=== PATIENT | female | born 1940 | race Caucasian/White ===

== ENCOUNTER → 2017-07-15 | Outpatient (CLI) | payer MEDICARE, MEDICAID ==
--- NOTE | 2017-07-15 12:30 | RADIOLOGY REPORT (SQ) ---
EXAM DESCRIPTION: CHEST PA/LATERAL COMPLETED DATE/TIME: 07/15/2017 11:53 am REASON FOR STUDY: ABNORMAL WEIGHT LOSS COMPARISON: 06/20/2013 EXAM PARAMETERS: NUMBER OF VIEWS: two views TECHNIQUE: Digital Frontal and Lateral radiographic views of the chest acquired. RADIATION DOSE: NA LIMITATIONS: none FINDINGS: LUNGS AND PLEURA: No opacities, masses or pneumothorax. No pleural effusion. MEDIASTINUM AND HILAR STRUCTURES: No masses or contour abnormalities. HEART AND VASCULAR STRUCTURES: Heart size normal. There is a long stent extending from the aortic ar ch to lower abdomen. BONES: No acute findings. HARDWARE: See above. OTHER: No other significant finding. IMPRESSION: No acute cardiopulmonary disease. TECHNICAL DOCUMENTATION: JOB ID: [id number] [employer]- All Rights Reserved
== END ==
LOC: OD 11:34
PROVIDERS: ATTEND Physician Assistant
DX: R63.4 Abnormal weight loss (principal)
CPT/HCPCS: 71020

== ENCOUNTER → 2018-02-20 | Outpatient (CLI) | payer MEDICARE, MEDICAID ==
--- NOTE | 2018-02-20 11:10 | WOMENS IMAGING REPORT ---
EXAM DESCRIPTION: BONE DENSITY HIP/SPINE COMPLETED DATE/TIME: 02/20/2018 10:41 am REASON FOR STUDY: BONE DENSITY HIP/PELVIS/ SPINE/Z78.0 Z78.0 ASYMPTOMATIC MENOPAUSAL STATE COMPARISON: None. TECHNIQUE: Dual-Energy X-ray Absorptiometry (DEXA) of the AP Spine and Hip. LIMITATIONS: None. FINDINGS: Left forearm: The bone mineral density (BMD) measured in the left distal radius and ulna projection correlates with a T-score of -1.6, which is osteopenic as defined by the World Health Organization. HIP: The bone mineral density (BMD) measured in the right hip at the hip correlates with a T-score of -2.3 , which is osteopenic as defined by the World Health Organization. IMPRESSION: 1. Left forearm: Osteopenic 2. HIP: Osteopenic COMMENT: The World Health Organization defines low BMD as follows: T-score: Normal: Greater than -1.0 Osteopenia: Between -1.0 and -2.5 Osteoporosis: Less than -2.5 without fractures Established osteoporosis: Less than -2.5 with fractures In general, you may wish to consider: Diagnosis Treatment Follow-up DEXA Normal BMD Prevention 2-3 years Osteopenia Prevention/Therapy 1-2 years Osteoporosis Therapy Yearly TECHNICAL DOCUMENTATION: JOB ID: [id number] [employer]- All Rights Reserved Reading location - IP/workstation name: [email or web address]
== END ==
LOC: WI 10:18
PROVIDERS: ATTEND Physician Assistant
DX: M85.832 Other specified disorders of bone density and structure, left forearm (principal); M85.88 Other specified disorders of bone density and structure, other site; Z78.0 Asymptomatic menopausal state
CPT/HCPCS: 77080

== ENCOUNTER 2018-07-08 11:34 | Emergency (ER) | payer MEDICARE, MEDICAID ==
[2018-07-08] MEDS ORDERED: ONDANSETRON 4 MG TAB.RAPDIS PO ONE (12:45)
--- NOTE | 2018-07-08 12:49 | ER Document Report ---
ED Medical Screen (RME) - General Chief Complaint: Nausea/Vomiting Stated Complaint: VOMITING Time Seen by Provider: 07/08/18 12:38 Mode of Arrival: Ambulatory Information source: Patient, Relative Notes: 77-year-old female presents to ED for complaint of frequency urgency and burning with urination for 5 days. She states she also has been vomiting every day for the last 5 days about an hour after she takes her morning medicine. States she has not been taking her afternoon medicine because she does not want to vomit again.. She states she has a very decreased appetite. She states she only has one kidney because she has a history of a injury to the left kidney during surgery so they clamped the kidney off and it does not work. She does have a history of high blood pressure cholesterol and arthritis. She is on multiple medications for blood pressure. She is alert and oriented respirations regular and unlabored speaking in full sentences and walks with a even steady gait. She states that she has some suprapubic pain but not abdominal pain. Patient's lungs are clear to auscultation active bowel sounds no tenderness to the abdomen except for in the suprapubic area. I have greeted and performed a rapid initial assessment of this patient. A comprehensive ED assessment and evaluation of the patient, analysis of test results and completion of medical decision making process will be conducted by an additional ED providers. TRAVEL OUTSIDE OF THE [place] IN LAST 30 DAYS: No - Related Data Allergies/Adverse Reactions: Penicillins Allergy (Verified 01/20/14 03:46) Past Medical History - Past Medical History Cardiac Medical History: Reports: Hx Coronary Artery Disease, Hx Heart Attack, Hx Hypercholesterolemia Psychiatric Medical History: Reports: Hx Depression Past Surgical History: Reports: Hx Abdominal Surgery - Aorta surgery, Hx Bowel Surgery - colostomy, Hx Cardiac Catheterization - 5 stents, Hx Hysterectomy, Hx Tonsillectomy - Immunizations Hx Diphtheria, Pertussis, Tetanus Vaccination: Yes Physical Exam - Vital signs Vitals: Temp Pulse Resp BP Pulse Ox 98.4 F 77 16 112/63 96 07/08/18 11:43 07/08/18 11:43 07/08/18 11:43 07/08/18 11:43 07/08/18 11:43 Course - Vital Signs Vital signs: Temp Pulse Resp BP Pulse Ox 98.4 F 77 16 112/63 96 07/08/18 11:43 07/08/18 11:43 07/08/18 11:43 07/08/18 11:43 07/08/18 11:43 Doctor's Discharge - Discharge Referrals: ANNE COVINGTON PA-C [Primary Care Provider] - Follow up as needed
[2018-07-08] MEDS ORDERED: ONDANSETRON 4 MG TAB.RAPDIS ONE (13:02)
[2018-07-08 13:20] LABS: ABSOLUTE BASOPHILS # (AUTO) 0.1 10^3/uL (0.0-0.2); ABSOLUTE EOSINOPHILS # (AUTO) 0.2 10^3/uL (0.0-0.6); ABSOLUTE LYMPHOCYTES (AUTO) 1.6 10^3/uL (0.5-4.7); ABSOLUTE MONOCYTES (AUTO) 0.6 10^3/uL (0.1-1.4); ABSOLUTE NEUT (AUTO) 6.8 10^3/uL (1.7-8.2); BASOPHILS % (AUTO) 0.7 % (0-2); EOSINOPHILS % (AUTO) 2.1 % (0-6); HEMATOCRIT 42.2 % (36.0-47.0); HEMOGLOBIN 13.9 g/dL (12.0-15.5); LYMPHOCYTES % (AUTO) 17.5 % (13-45); MEAN CORPUSCULAR HEMOGLOBIN 28.1 pg (27.0-33.4); MEAN CORPUSCULAR VOLUME 85 fl (80-97); MONOCYTES % (AUTO) 6.1 % (3-13); PLATELET COUNT 194 10^3/uL (150-450); RED BLOOD COUNT 4.95 10^6/uL (3.72-5.28); RED CELL DISTRIBUTION WIDTH 13.4 % (11.5-14.0); SEGMENTED NEUTROPHILS % (AUTO) 73.6 % (42-78); TOTAL CELLS COUNTED % (AUTO) 100 %; WHITE BLOOD COUNT 9.2 10^3/uL (4.0-10.5)
[2018-07-08 13:37] LABS: ALANINE AMINOTRANSFERASE 12 U/L (9-52); ALBUMIN 4.7 g/dL (3.5-5.0); ALKALINE PHOSPHATASE 82 U/L (38-126); ANION GAP 15 (5-19); ASPARTATE AMINO TRANSFERASE 21 U/L (14-36); BILIRUBIN,DIRECT 0.2 mg/dL (0.0-0.4); BILIRUBIN,TOTAL 0.6 mg/dL (0.2-1.3); BLOOD UREA NITROGEN 34 mg/dL (7-20); CALCIUM 11.4 mg/dL (8.4-10.2); CARBON DIOXIDE 26 mmol/L (22-30); CHLORIDE 104 mmol/L (98-107); GLUCOSE 101 mg/dL (75-110); LIPASE 187.6 U/L (23-300); POTASSIUM 4.5 mmol/L (3.6-5.0); SODIUM 144.8 mmol/L (137-145); TOTAL PROTEIN 8.3 g/dL (6.3-8.2)
--- NOTE | 2018-07-08 14:58 | ER Document Report ---
HPI - HPI Time Seen by Provider: 07/08/18 12:38 Pain Level: Denies Notes: Patient is a 77-year-old female who presents to the ED only for blood work to look at her kidney function. Patient states that she has 1 operating kidney currently and had urinary symptoms all of last week which have since improved. Patient states that she also has an episode of vomiting each morning for the last several days after taking her medicine. Patient states that 45 minutes after taking her medicine she will have an episode of vomiting without any hematemesis. Patient states that otherwise she is able to eat and drink without any difficulties. She has no other associated symptoms. Patient states that she has absolutely no pain anywhere. She is able to ambulate without any difficulties. She has no other concerns or complaints at this time. Denies any headache, fever, neck pain, changes in vision/speech/mentation /hearing, URI, sore throat, chest pain, palpitations, syncope, cough, shortness of breath, wheeze, dyspnea, abdominal pain, nausea/vomiting/diarrhea, back pain , numbness/tingling, muscle paralysis/weakness, or rash. - ROS Systems Reviewed and Negative: Yes All other systems reviewed and negative - REPRODUCTIVE Reproductive: DENIES: : - DERM Skin Color: Normal Past Medical History - General Information source: Patient, Relative - Social History Smoking Status: Unknown if Ever Smoked Family History: None Patient has suicidal ideation: No Patient has homicidal ideation: No - Past Medical History Cardiac Medical History: Reports: Hx Coronary Artery Disease, Hx Heart Attack, Hx Hypercholesterolemia Renal/ Medical History: Denies: Hx Peritoneal Dialysis Psychiatric Medical History: Reports: Hx Depression Past Surgical History: Reports: Hx Abdominal Surgery - Aorta surgery, Hx Bowel Surgery - colostomy, Hx Cardiac Catheterization - 5 stents, Hx Hysterectomy, Hx Tonsillectomy - Immunizations Hx Diphtheria, Pertussis, Tetanus Vaccination: Yes Vertical Provider Document - CONSTITUTIONAL Agree With Documented VS: Yes Notes: PHYSICAL EXAMINATION: GENERAL: Well-appearing, well-nourished and in no acute distress. A&Ox4. Answers questions appropriately. HEAD: Atraumatic, normocephalic. EYES: Pupils equal round and reactive to light, extraocular movements intact, sclera anicteric, conjunctiva are normal. ENT: Nares patent and without discharge. oropharynx clear without exudates. No tonsilar hypertrophy or erythema. Moist mucous membranes. NECK: Normal range of motion, supple without lymphadenopathy LUNGS: Breath sounds clear to auscultation bilaterally and equal. No wheezes rales or rhonchi. HEART: Regular rate and rhythm without murmurs, rubs, gallops. ABDOMEN: Soft, nontender, nondistended abdomen. No guarding, no rebound. No masses appreciated. Normal bowel sounds present. No CVA tenderness bilaterally. Musculoskeletal: FROM to passive/active. Strength 5+/5. Extremities: No cyanosis, clubbing, or edema b/l. Peripheral pulses 2+. Capillary refill less than 3 seconds. NEUROLOGICAL: Cranial nerves grossly intact. Normal speech, normal gait. PSYCH: Normal mood, normal affect. SKIN: Warm, Dry, normal turgor, no rashes or lesions noted. - INFECTION CONTROL TRAVEL OUTSIDE OF THE [place] IN LAST 30 DAYS: No Course - Re-evaluation Re-evalutation: 07/08/18 15:57 Patient is an afebrile, well-hydrated M 77-year-old female who presents to the ED with an acute UTI. Vitals are acceptable without any significant tachycardia , tachypnea, or hypoxia. PE is otherwise unremarkable. Patient is nontoxic- appearing and is tolerating p.o. without difficulty. CBC, CMP unremarkable. Creatinine at baseline. See urinalysis results. Urine culture is pending. No further labs or imaging warranted at this time. Patient's abdomen is soft and nontender. Low suspicion for any acute abdomen, sepsis, meningitis, severe dehydration, respiratory compromise, or other systemic emergent condition at this time. Patient is aware that condition can change from initial presentation and she needs to monitor symptoms closely and seek medical attention with any acute changes. I will sent home with a perception for Keflex. Conservative measures otherwise for symptoms. Recheck with your PCM in 2-3 days. Return to the ED with any worsening/concerning symptoms otherwise as reviewed. Patient is in agreement. - Vital Signs Vital signs: Temp Pulse Resp BP Pulse Ox 98.4 F 77 16 112/63 96 07/08/18 11:43 07/08/18 11:43 07/08/18 11:43 07/08/18 11:43 07/08/18 11:43 - Laboratory Result Diagrams: 07/08/18 13:00 07/08/18 13:00 Laboratory results interpreted by me: 07/08/18 13:00 BUN 34 H Creatinine 1.35 H Est GFR ( Amer) 46 L Est GFR (Non-Af Amer) 38 L Calcium 11.4 H Total Protein 8.3 H Discharge - Discharge Clinical Impression: Acute UTI (urinary tract infection) Condition: Stable Disposition: HOME, SELF-CARE Instructions: Cephalexin ([facility]), Urinary Tract Infection ([facility]) Additional Instructions: Push fluids (i.e. water, cranberry juice) Proper hygenic technique Keep the skin clean Tylenol/ibuprofen as needed Take medications as directed F/u with your PCM in 2-3 days for a recheck Consider consult with a Urologist for ongoing/worsening symptoms. Return to the ED with any worsening symptoms and/or development of fever, headache, chest pain, palpitations, syncope, shortness of breath, trouble breathing, abdominal pain, n/v/d, blood in stool/urine, loss of control of bowel /bladder, urinary retention, or other worsening symptoms that are concerning to you. Prescriptions: Cephalexin Monohydrate [Keflex 500 mg Capsule] 500 mg PO BID #14 capsule Referrals: ANNE COVINGTON PA-C [Primary Care Provider] - 07/11/18
[2018-07-08 15:25] LABS: APPEARANCE,URINE TURBID; BILIRUBIN,URINE NEGATIVE (NEGATIVE); GLUCOSE, URINE NEGATIVE (NEGATIVE); KETONES,URINE NEGATIVE (NEGATIVE); LEUKOCYTE ESTERASE,URINE LARGE (NEGATIVE); NITRITE,URINE NEGATIVE (NEGATIVE); PROTEIN,URINE 100 mg/dL (NEGATIVE); URINE SPECIFIC GRAVITY 1.015; UROBILINOGEN,URINE NEGATIVE mg/dL (<2.0)
[2018-07-08 15:28] LABS: COLOR,URINE YELLOW
[2018-07-08 16:17] VITALS: BP 110/68
== END 2018-07-08 16:16 | disposition home or self-care (01) ==
LOC: ER 11:34
DX: N39.0 Urinary tract infection, site not specified (principal); R11.11 Vomiting without nausea; I25.10 Atherosclerotic heart disease of native coronary artery without angina pectoris; Z95.5 Presence of coronary angioplasty implant and graft
CPT/HCPCS: 99283; 51701; 36415; 87086; 83690; 85025; 80053; 81001; A9270; S0119

== ENCOUNTER → 2019-01-15 | Outpatient (CLI) | payer MEDICARE, OTHER ==
[2019-01-15 14:26] LABS: APPEARANCE,URINE SLIGHTLY-CLOUDY; BILIRUBIN,URINE NEGATIVE (NEGATIVE); COLOR,URINE YELLOW; GLUCOSE, URINE NEGATIVE (NEGATIVE); KETONES,URINE NEGATIVE (NEGATIVE); LEUKOCYTE ESTERASE,URINE SMALL (NEGATIVE); NITRITE,URINE NEGATIVE (NEGATIVE); PROTEIN,URINE NEGATIVE (NEGATIVE); URINE SPECIFIC GRAVITY 1.014; UROBILINOGEN,URINE NEGATIVE mg/dL (<2.0)
[2019-01-15 14:35] LABS: ABSOLUTE EOSINOPHILS # (AUTO) 0.1 10^3/uL (0.0-0.6); ABSOLUTE LYMPHOCYTES (AUTO) 1.7 10^3/uL (0.5-4.7); ABSOLUTE MONOCYTES (AUTO) 0.5 10^3/uL (0.1-1.4); ABSOLUTE NEUT (AUTO) 3.9 10^3/uL (1.7-8.2); BASOPHILS % (AUTO) 0.7 % (0-2); EOSINOPHILS % (AUTO) 2.2 % (0-6); HEMATOCRIT 37.7 % (36.0-47.0); HEMOGLOBIN 12.6 g/dL (12.0-15.5); LYMPHOCYTES % (AUTO) 26.9 % (13-45); MEAN CORPUSCULAR HEMOGLOBIN 28.2 pg (27.0-33.4); MEAN CORPUSCULAR HGB CONC 33.4 g/dL (32.0-36.0); MEAN CORPUSCULAR VOLUME 84 fl (80-97); MONOCYTES % (AUTO) 7.4 % (3-13); PLATELET COUNT 149 10^3/uL (150-450); RED BLOOD COUNT 4.47 10^6/uL (3.72-5.28); RED CELL DISTRIBUTION WIDTH 13.8 % (11.5-14.0); SEGMENTED NEUTROPHILS % (AUTO) 62.8 % (42-78); TOTAL CELLS COUNTED % (AUTO) 100 %; WHITE BLOOD COUNT 6.2 10^3/uL (4.0-10.5)
[2019-01-15 14:56] LABS: ALBUMIN 4.7 g/dL (3.5-5.0); ANION GAP 12 (5-19); BLOOD UREA NITROGEN 28 mg/dL (7-20); CALCIUM 10.7 mg/dL (8.4-10.2); CARBON DIOXIDE 26 mmol/L (22-30); CHLORIDE 102 mmol/L (98-107); GLUCOSE 95 mg/dL (75-110); PHOSPHORUS 3.8 mg/dL (2.5-4.5); POTASSIUM 4.8 mmol/L (3.6-5.0); SODIUM 140.1 mmol/L (137-145)
[2019-01-16 12:37] LABS: CREATININE URINE 125.4 mg/dL (Not Estab.); MICROALBUMIN URINE 20.5 ug/mL (Not Estab.)
== END ==
LOC: OD 13:56
PROVIDERS: ATTEND Internal Medicine Nephrology
DX: I12.9 Hypertensive chronic kidney disease with stage 1 through stage 4 chronic kidney disease, or unspecified chronic kidney disease (principal); N18.3 Chronic kidney disease, stage 3 (moderate); E83.52 Hypercalcemia; R80.9 Proteinuria, unspecified
CPT/HCPCS: 36415; 80048; 81001; 82040; 82043; 82306; 82570; 83970; 84100; 85025

== ENCOUNTER 2019-09-06 16:52 | Inpatient (IN) | payer MEDICARE, MEDICAID ==
[2019-09-06 17:38] LABS: ABSOLUTE LYMPHOCYTES (AUTO) 0.6 10^3/uL (0.5-4.7); ABSOLUTE MONOCYTES (AUTO) 0.9 10^3/uL (0.1-1.4); ABSOLUTE NEUT (AUTO) 4.2 10^3/uL (1.7-8.2); BASOPHILS % (AUTO) 0.1 % (0-2); EOSINOPHILS % (AUTO) 0.2 % (0-6); HEMATOCRIT 41.6 % (36.0-47.0); HEMOGLOBIN 13.9 g/dL (12.0-15.5); LYMPHOCYTES % (AUTO) 10.4 % (13-45); MEAN CORPUSCULAR HEMOGLOBIN 28.1 pg (27.0-33.4); MEAN CORPUSCULAR HGB CONC 33.4 g/dL (32.0-36.0); MEAN CORPUSCULAR VOLUME 84 fl (80-97); MONOCYTES % (AUTO) 15.5 % (3-13); PLATELET COUNT 167 10^3/uL (150-450); RED BLOOD COUNT 4.95 10^6/uL (3.72-5.28); RED CELL DISTRIBUTION WIDTH 14.6 % (11.5-14.0); SEGMENTED NEUTROPHILS % (AUTO) 73.8 % (42-78); TOTAL CELLS COUNTED % (AUTO) 100 %; WHITE BLOOD COUNT 5.7 10^3/uL (4.0-10.5)
[2019-09-06 18:05] LABS: ALBUMIN 4.8 g/dL (3.5-5.0); ALKALINE PHOSPHATASE 88 U/L (38-126); ANION GAP 14 (5-19); ASPARTATE AMINO TRANSFERASE 27 U/L (14-36); BILIRUBIN,DIRECT 0.4 mg/dL (0.0-0.4); BILIRUBIN,TOTAL 0.8 mg/dL (0.2-1.3); BLOOD UREA NITROGEN 52 mg/dL (7-20); CALCIUM 11.6 mg/dL (8.4-10.2); CARBON DIOXIDE 30 mmol/L (22-30); CHLORIDE 94 mmol/L (98-107); GLUCOSE 111 mg/dL (75-110); POTASSIUM 4.1 mmol/L (3.6-5.0); TOTAL PROTEIN 8.4 g/dL (6.3-8.2)
[2019-09-06] MEDS ORDERED: ONDANSETRON HCL INJ/PF 4 MG/2 ML SDV IV ONE (20:32)
[2019-09-06] MEDS ORDERED: NORMAL SALINE 1000 ML 1,000 ML IV ONE (20:32)
--- NOTE | 2019-09-06 20:38 | ER Document Report ---
ED General - General Chief Complaint: Nausea/Vomiting Stated Complaint: VOMITING Time Seen by Provider: 09/06/19 20:04 Notes: Patient is an 79-year-old female that comes emergency department by EMS from home for chief complaint of weakness, vomiting, productive cough, and a change in her usual baseline functioning. Patient is telling me that currently she hurts in her upper abdomen. Apparently normally patient is only checked on and cares for self, energetic and ambulating, she has not been out of bed for a couple of days now, she has been intermittently confused as well. No fevers reported. 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 TRAVEL OUTSIDE OF THE [place] IN LAST 30 DAYS: No - Related Data Allergies/Adverse Reactions: Penicillins Allergy (Verified 01/20/14 03:46) Home Medications: Amlodipine, Citalopram, Meclizine, Hydralazine, Plavix, Pantoprazole, Gabapentin, Labeltalol, Clonidine Past Medical History - General Information source: Patient, Relative - Social History Smoking Status: Never Smoker Frequency of alcohol use: None Drug Abuse: None Lives with: Family Family History: None Patient has suicidal ideation: No Patient has homicidal ideation: No - Past Medical History Cardiac Medical History: Reports: Hx Coronary Artery Disease, Hx Heart Attack, Hx Hypercholesterolemia Renal/ Medical History: Denies: Hx Peritoneal Dialysis Psychiatric Medical History: Reports: Hx Depression Past Surgical History: Reports: Hx Abdominal Surgery - Aorta surgery, Hx Bowel Surgery - colostomy, Hx Cardiac Catheterization - 5 stents, Hx Hysterectomy, Hx Tonsillectomy - Immunizations Hx Diphtheria, Pertussis, Tetanus Vaccination: Yes Review of Systems - Review of Systems Constitutional: See HPI EENT: No symptoms reported Cardiovascular: See HPI Respiratory: See HPI Gastrointestinal: See HPI Genitourinary: No symptoms reported Female Genitourinary: No symptoms reported Musculoskeletal: No symptoms reported Skin: No symptoms reported Hematologic/Lymphatic: No symptoms reported Neurological/Psychological: No symptoms reported Physical Exam - Vital signs Vitals: Temp Pulse Resp BP Pulse Ox 97.8 F 81 16 171/81 H 97 09/06/19 17:37 09/06/19 17:37 09/06/19 17:37 09/06/19 17:37 09/06/19 17:37 - Notes Notes: GENERAL: Alert, interacts well. Appears mildly ill and frail HEAD: Normocephalic, atraumatic. EYES: Pupils equal, round, and reactive to light. Extraocular movements intact. ENT: Oral mucosa very dry, tongue midline. Oropharynx unremarkable. Airway patent. LUNGS: Clear to auscultation bilaterally, no wheezes, rales, or rhonchi. No r espiratory distress. HEART: Regular rate and rhythm. No murmur ABDOMEN: There is tenderness in the mid to upper abdomen generally with wincing. Questionable mild distention. There is a ostomy in the left lower abdomen without surrounding tenderness or erythema noted. GENITOURINARY: Deferred EXTREMITIES: Moves all 4 extremities spontaneously. No edema, normal radial and dorsalis pedis pulses bilaterally. No cyanosis. BACK: no cervical, thoracic, lumbar midline tenderness. No saddle anesthesia, normal distal neurovascular exam. Moves all extremities in full range of motion. NEUROLOGICAL: Alert and oriented x3. Normal speech. Cranial nerves II through XII grossly intact. PSYCH: Normal affect, normal mood. SKIN: Slightly pale Course - Re-evaluation Re-evalutation: Patient with tenderness over the upper abdomen, vomiting, mildly ill-appearing. Vital signs unremarkable except for hypertension. Patient does states she feels much improved after some IV fluids. She was given nausea medication. Chest x-ray unremarkable, CBC nonspecific, chemistry nonspecific with baseline creatinine. Lipase unremarkable. Troponin indeterminate. Because of reported intermittent confusion CT of the head was performed and unremarkable. CT of the abdomen and pelvis was performed because of vomiting and upper abdominal pain with history of abdominal surgery and does indicate obstruction. Suspect this is obstructed at the ostomy as opposed to a hernia. Will discuss with surgery. Discussed with patient and son. Discussed with Dr. Montes De Oca, general surgery, he reviewed the images, evaluate the patient, accepted to his service, requested an NG tube be placed. Admitted to the surgical service, patient and son state understanding and agreement. - Vital Signs Vital signs: Temp Pulse Resp BP Pulse Ox 98.1 F 82 16 151/70 H 97 09/07/19 03:15 09/07/19 03:15 09/07/19 03:15 09/07/19 03:15 09/07/19 03:15 - Laboratory Result Diagrams: 09/06/19 17:25 09/06/19 17:25 Laboratory results interpreted by me: 09/06/19 09/06/19 09/06/19 17:25 17:25 22:24 RDW 14.6 H Lymph % (Auto) 10.4 L Sac % (Auto) 15.5 H Chloride 94 L BUN 52 H Creatinine 1.34 H Est GFR ( Amer) 46 L Est GFR (MDRD) Non-Af 38 L Glucose 111 H Calcium 11.6 H Total Protein 8.4 H Urine Protein >=500 H Urine Blood MODERATE H Discharge - Discharge Clinical Impression: Weakness Bowel obstruction Qualifiers: Intestinal obstruction type: unspecified Intestinal obstruction extent: unspecified extent Qualified Code(s): K56.609 - Unspecified intestinal obstruction, unspecified as to partial versus complete obstruction Vomiting Qualifiers: Vomiting type: unspecified Vomiting Intractability: intractable Nausea presence: with nausea Qualified Code(s): R11.2 - Nausea with vomiting, unspecified Abdominal pain Qualifiers: Abdominal location: epigastric Qualified Code(s): R10.13 - Epigastric pain Condition: Stable Disposition: ADMITTED INPATIENT Admitting Provider: Surgicalist Unit Admitted: Surgical Floor
--- NOTE | 2019-09-06 22:02 | RADIOLOGY REPORT (SQ) ---
CT HEAD WITHOUT IV CONTRAST CLINICAL STATEMENT: altered mental status TECHNIQUE: Axial CT images from skull base to vertex without IV contrast. This exam was performed according to our departmental dose optimization program, and includes the following measures where applicable: automated exposure control, adjustment of the mAs and/or kVp according to patient size and/or exam, and an iterative reconstruction algorithm. COMPARISON: Unenhanced CT scan of the brain January 20, 2014 FINDINGS: There is no acute intracranial hemorrhage, mass, mass effect or abnormal extra-axial fluid collection. No evidence of an acute territorial infarct is identified. Ventricles and cisterns are patent. There is mild diffuse global volume loss. Subtle low density is present in the periventricular white matter suggestive of small vessel ischemic change. Volume loss is minimally progressed when compared to the previous exam. Calvaria: The skull base and calvaria demonstrate no abnormality. Paranasal sinuses: Visualized portions of the orbits and paranasal sinuses are unremarkable. skull base: Unremarkable IMPRESSION: 1. No hemorrhage or mass lesion. 2. Age-related volume loss with nonspecific white matter changes suggestive of small vessel ischemic disease.
--- NOTE | 2019-09-06 22:06 | RADIOLOGY REPORT (SQ) ---
EXAM DESCRIPTION: CT ABDOMEN PELVIS WITH IV CONTRAST COMPLETED DATE/TME: 09/06/2019 20:31 CLINICAL HISTORY: 79 years, Female, abd pain, vomiting COMPARISON: None. TECHNIQUE: 377 Images stored on PACS. All CT scanners at this facility use dose modulation, iterative reconstruction, and/or weight based dosing when appropriate to reduce radiation dose to as low as reasonably achievable (ALARA). [facility]: Dose Right [facility]: CareDose [facility]: Dose Right [facility]: Teradose 4D [facility]: [employer] LIMITATIONS: None. FINDINGS: Limited evaluation of the lung bases is unremarkable. Osseous structures are grossly intact. There is aorto biiliac endovascular stent graft, with visible stents also involving the SMA and celiac axis. Left renal artery stent is also suggested. Severe left renal atrophy. Aneurysmal dilatation of the algaaciq abdominal aorta with maximal diameter 5.7 x 5.7 cm. The liver, spleen, adrenal glands, pancreas, right kidney are unremarkable. Gallbladder is present, contracted. Subcentimeter partially exophytic right renal cyst is incidentally noted. Gas and stool in the colon. Left hip prosthesis with streak artifact limiting portions of the pelvis. There is a small amount of free fluid in the pelvis. There are dilated fluid-filled loops of small bowel. Normal appendix. Relative decompression of the colon. Multiple redundant loops of sigmoid colon. Probable transition point in the left lower quadrant, associated with a anterior abdominal wall/pelvic hernia to the left of midline containing a portion of small bowel. This appears to extend to the cutaneous surface and could reflect prior ostomy, correlate with surgical history. No surgical history was provided. Maximal diameter of small bowel is approximately 4.9 cm. No definitive pneumatosis at this time.. IMPRESSION: Small bowel obstruction, as above with probable transition point associated with a hernia of the anterior left hemipelvis abdominal or pelvic wall. Small amount of free fluid. No free air. Relative decompression of colon. Aneurysmal dilatation of the abdominal aorta measuring 5.7 x 5.7 cm. Recommend follow-up as per below. Post surgical changes with endovascular stent graft in place. No free air. Severe left renal atrophy. For management of fusiform aneurysmal abdominal aortas: <2.6 cm aorta, no follow-up is recommended. 2.6-2.9 cm aorta, recommend follow-up every 5 years for aortas meeting the criteria for AAA (>1.5 x proximal normal segment; no f/u if < 1.5 x proximal normal segment; no f/u for aortas < 2.6 cm). 3.0-3.4 cm AAA, recommend follow-up every 3 years. 3.5-3.9 cm AAA, recommend follow-up every 2 years. 4.0-4.4 cm AAA, recommend follow-up every 12 months and recommend vascular consultation. 4.5-5.4 cm AAA, recommend follow-up every 6 months and recommend vascular consultation. >5.5 cm AAA, recommend referral to vascular specialist. For management of saccular abdominal aortic aneurysms of any size, recommend vascular consultation. Note: for AAA enlargement of >0.5 cm in 6 months or >1 cm in 1 year, recommend vascular consultation. References: J Am Donald Radiol 2013; 10(10):789-794; J Vasc Surg. 2018; 67:2-77 TECHNICAL DOCUMENTATION: Quality ID # 436: Final reports with documentation of one or more dose reduction techniques (e.g., Automated exposure control, adjustment of the mA and/or kV according to patient size, use of iterative reconstruction technique) copyright 2011 [employer]- All Rights Reserved
--- NOTE | 2019-09-06 22:12 | RADIOLOGY REPORT (SQ) ---
EXAM DESCRIPTION: XR CHEST 1 VIEW COMPLETED DATE/TME: 09/06/2019 20:30 CLINICAL HISTORY: 79 years, Female, cough, short of breath, weakness COMPARISON: 07/15/2017 chest NUMBER OF VIEWS: 1 TECHNIQUE: Portable chest LIMITATIONS: none FINDINGS: The heart size is normal. Endovascular stent graft of the aorta. The lungs are hyperinflated but clear. No pneumothorax. Graft material in the left axilla. Osteopenia IMPRESSION: No acute cardiopulmonary process copyright 2010 [employer]- All Rights Reserved
[2019-09-06] MEDS ORDERED: FENTANYL CITRATE INJ/PF 100 MCG/2 ML AMPUL IV ONE (22:35)
[2019-09-06] MEDS ORDERED: LIDOCAINE 1% INJ-PF (10 MG/ML) 30 ML SDV NEB ONE (22:35)
[2019-09-06 22:49] LABS: APPEARANCE,URINE CLEAR; BILIRUBIN,URINE NEGATIVE (NEGATIVE); COLOR,URINE YELLOW; GLUCOSE, URINE NEGATIVE (NEGATIVE); KETONES,URINE NEGATIVE (NEGATIVE); LEUKOCYTE ESTERASE,URINE NEGATIVE (NEGATIVE); NITRITE,URINE NEGATIVE (NEGATIVE); PROTEIN,URINE >=500 mg/dL (NEGATIVE); URINE SPECIFIC GRAVITY 1.027; UROBILINOGEN,URINE NEGATIVE mg/dL (<2.0)
[2019-09-06] MEDS ORDERED: DEXTROSE 5%-LACTATED RINGERS 1,000 ML IV PRN (22:56)
[2019-09-06] MEDS ORDERED: PHARMACY COMMUNICATION ORDER MC NR (23:00)
[2019-09-06 23:15] LABS: A TYPE INFLUENZA AG NEGATIVE (NEGATIVE); B INFLUENZA AG NEGATIVE (NEGATIVE)
[2019-09-07] MEDS: METOPROLOL TARTRATE PF/INJ 5 MG/5 ML SDV IV SCH ×2 (05:21→17:26)
--- NOTE | 2019-09-07 06:33 | PDOC H&P ---
History of Present Illness Admission Date/PCP: 09/06/19 23:01 ANNE COVINGTON PA-C Patient complains of: Abdominal pain, nausea, vomiting History of Present Illness: STEPHANIE MILLER is a 79 year old female who by report is very independent. 2 days ago she began having abdominal pain, distention, nausea, and vomiting. Her son reports that he went to visit his mother, and she was in considerable amounts of pain. They called EMS, and the patient was taken to the hospital. She was evaluated in the emergency department and found to have a small bowel obstruction. I was consulted to evaluate the patient. Patient reports sharp and stabbing abdominal pain that radiates throughout the abdomen. She reports multiple episodes of nausea and vomiting. Patient has a descending colostomy, placed at [facility]. The patient is unsure why she has her colostomy. Patient does not wear a colostomy bag. Per her report she allows the stool to collect on tissue paper at home. She reports decreased amounts of stool output from her colostomy over the last 2 days. Currently she denies chest pain, shortness of breath, fevers, chills, dizziness, orthostasis, melena, hematochezia, hematemesis, blurry vision. She does report abdominal pain, nausea, vomiting. Of note, the patient has a history of an aneurysm repair, performed at [facility]. 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 She denies a history of dialysis. 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 Colostomy. Social History Lives with: Family Smoking Status: Never Smoker Frequency of Alcohol Use: None Hx Recreational Drug Use: No Hx Prescription Drug Abuse: No Family History Family History: None Parental Family History Reviewed: Yes Children Family History Reviewed: Yes Sibling(s) Family History Reviewed.: Yes Medication/Allergy Home Medications: Citalopram Hydrobromide [Celexa 10 mg Tablet] 10 mg PO DAILY 06/20/13 Clopidogrel Bisulfate [Plavix 75 mg Tablet] 75 mg PO DAILY 06/20/13 Solifenacin Succinate [Vesicare] 5 mg PO DAILY 06/20/13 Metoprolol Succinate [Toprol Xl 25 mg Tab.sr] 25 mg PO DAILY 01/20/14 Meclizine HCl [Antivert 25 mg Tablet] 25 mg PO TID PRN 04/07/14 Atorvastatin Calcium [Lipitor 40 mg Tablet] 40 mg PO DAILY 06/22/14 Miconazole Nitrate [Monistat 7] 5 gm TOP BID #1 bottle 06/22/14 Cephalexin Monohydrate [Keflex 500 mg Capsule] 500 mg PO BID #14 capsule 07/08/18 Ondansetron [Zofran Odt 4 mg Tablet] 1 - 2 tab PO Q4H PRN #15 tab.rapdis 07/08/18 Allergies/Adverse Reactions: Penicillins Allergy (Verified 01/20/14 03:46) Review of Systems Constitutional: PRESENT: fatigue. ABSENT: fever(s), headache(s) Eyes: ABSENT: visual disturbances Ears: ABSENT: hearing changes Nose, Mouth, and Throat: ABSENT: mouth pain, sore throat Cardiovascular: ABSENT: chest pain Respiratory: ABSENT: cough Gastrointestinal: PRESENT: abdominal pain, bloating, nausea, vomiting. ABSENT: hematemesis, hematochezia, melena Genitourinary: ABSENT: dysuria Musculoskeletal: ABSENT: back pain Integumentary: ABSENT: pruritus, rash Neurological: ABSENT: confusion, convulsions, dizziness Psychiatric: ABSENT: anxiety, depression Endocrine: ABSENT: cold intolerance, heat intolerance Hematologic/Lymphatic: ABSENT: easy bleeding, easy bruising Physical Exam Vital Signs: Temp Pulse Resp BP Pulse Ox 98.1 F 82 16 151/70 H 97 09/07/19 03:15 09/07/19 03:15 09/07/19 03:15 09/07/19 03:15 09/07/19 03:15 Intake & Output 09/05/19 09/06/19 09/07/19 06:59 06:59 06:59 Intake Total 1000 Output Total 700 Balance 300 Weight 51.7 kg General appearance: PRESENT: no acute distress, cooperative Head exam: PRESENT: atraumatic, normocephalic Eye exam: PRESENT: EOMI, PERRLA. ABSENT: scleral icterus Mouth exam: PRESENT: moist, neck supple Neck exam: ABSENT: meningismus, tenderness, thyromegaly, tracheal deviation Respiratory exam: PRESENT: clear to auscultation josefina, unlabored. ABSENT: chest wall tenderness, tachypnea, wheezes Cardiovascular exam: ABSENT: tachycardia Pulses: PRESENT: normal radial pulses Vascular exam: PRESENT: normal capillary refill GI/Abdominal exam: PRESENT: distended, soft, tenderness - Mild abdominal tenderness in all 4 quadrants., other - Left lower quadrant colostomy present. No recent ostomy output.. ABSENT: guarding, rebound, rigid Rectal exam: PRESENT: deferred Extremities exam: ABSENT: clubbing Musculoskeletal exam: ABSENT: deformity Neurological exam: PRESENT: alert, altered, oriented to person, oriented to p lace, oriented to time, oriented to situation, CN II-XII grossly intact Psychiatric exam: ABSENT: agitated, anxious, depressed Focused psych exam: ABSENT: delusional Skin exam: ABSENT: cyanosis, erythema, jaundice Results Laboratory Results: 09/06/19 17:25 09/06/19 17:25 09/06/19 09/06/19 09/06/19 17:25 17:25 17:25 WBC 5.7 RBC 4.95 Hgb 13.9 Hct 41.6 MCV 84 MCH 28.1 MCHC 33.4 RDW 14.6 H Plt Count 167 Seg Neutrophils % 73.8 Sodium 137.8 Potassium 4.1 Chloride 94 L Carbon Dioxide 30 Anion Gap 14 BUN 52 H Creatinine 1.34 H Est GFR ( Amer) 46 L Glucose 111 H Calcium 11.6 H Total Bilirubin 0.8 AST 27 Alkaline Phosphatase 88 Total Protein 8.4 H Albumin 4.8 Lipase 59.8 Urine Color Urine Appearance Urine pH Ur Specific [place] Urine Protein Urine Glucose (UA) Urine Ketones Urine Blood Urine Nitrite Ur Leukocyte Esterase Urine WBC (Auto) Urine RBC (Auto) 09/06/19 22:24 WBC RBC Hgb Hct MCV MCH MCHC RDW Plt Count Seg Neutrophils % Sodium Potassium Chloride Carbon Dioxide Anion Gap BUN Creatinine Est GFR ( Amer) Glucose Calcium Total Bilirubin AST Alkaline Phosphatase Total Protein Albumin Lipase Urine Color YELLOW Urine Appearance CLEAR Urine pH 6.0 Ur Specific [place] 1.027 Urine Protein >=500 H Urine Glucose (UA) NEGATIVE Urine Ketones NEGATIVE Urine Blood MODERATE H Urine Nitrite NEGATIVE Ur Leukocyte Esterase NEGATIVE Urine WBC (Auto) 4 Urine RBC (Auto) 51 09/06/19 17:25 Troponin I 0.024 Impressions: Chest X-Ray 09/06/19 20:30 IMPRESSION: No acute cardiopulmonary process copyright 2011 [employer]- All Rights Reserved Head CT 09/06/19 20:30 IMPRESSION: 1. No hemorrhage or mass lesion. 2. Age-related volume loss with nonspecific white matter changes suggestive of small vessel ischemic disease. Abdomen/Pelvis CT 09/06/19 20:31 IMPRESSION: Small bowel obstruction, as above with probable transition point associated with a hernia of the anterior left hemipelvis abdominal or pelvic wall. Small amount of free fluid. No free air. Relative decompression of colon. Aneurysmal dilatation of the abdominal aorta measuring 5.7 x 5.7 cm. Recommend follow-up as per below. Post surgical changes with endovascular stent graft in place. No free air. Severe left renal atrophy. For management of fusiform aneurysmal abdominal aortas: <2.6 cm aorta, no follow-up is recommended. 2.6-2.9 cm aorta, recommend follow-up every 5 years for aortas meeting the criteria for AAA (>1.5 x proximal normal segment; no f/u if < 1.5 x proximal normal segment; no f/u for aortas < 2.6 cm). 3.0-3.4 cm AAA, recommend follow-up every 3 years. 3.5-3.9 cm AAA, recommend follow-up every 2 years. 4.0-4.4 cm AAA, recommend follow-up every 12 months and recommend vascular consultation. 4.5-5.4 cm AAA, recommend follow-up every 6 months and recommend vascular consultation. >5.5 cm AAA, recommend referral to vascular specialist. For management of saccular abdominal aortic aneurysms of any size, recommend vascular consultation. Note: for AAA enlargement of >0.5 cm in 6 months or >1 cm in 1 year, recommend vascular consultation. References: J Am Donald Radiol 2013; 10(10):789-794; J Vasc Surg. 2018; 67:2-77 TECHNICAL DOCUMENTATION: Quality ID # 436: Final reports with documentation of one or more dose reduction techniques (e.g., Automated exposure control, adjustment of the mA and/or kV according to patient size, use of iterative reconstruction technique) copyright 2010 [employer]- All Rights Reserved Assessment & Plan - Diagnosis (1) Small bowel obstruction due to adhesions Is this a current diagnosis for this admission?: Yes - Plan Summary Plan Summary: This is an 79-year-old female with a small bowel obstruction, very likely due to adhesions. The patient reports decreased colostomy output over the last 2 days, with nausea, vomiting, and abdominal pain. I have reviewed her CT scan (images and reports). Patient has an intra-abdominal transition zone, concerning for small bowel obstruction. I have discussed care with the patient and her son. I have recommended NG decompression, and conservative management. I will have the nurses place a colostomy bag on the patient's colostomy. Hopefully with NG decompression, and conservative management, her symptoms will resolve. If there is no resolution of symptoms and 48 to 72 hours, the patient may require operative intervention. This has been discussed at length with the patient and her son. They are in agreement with the treatment plan. Further recommendations and treatments to be determined based on the patient's clinical course.
[2019-09-07 06:59] LABS: ABSOLUTE EOSINOPHILS # (AUTO) 0.1 10^3/uL (0.0-0.6); ABSOLUTE LYMPHOCYTES (AUTO) 0.6 10^3/uL (0.5-4.7); ABSOLUTE MONOCYTES (AUTO) 0.8 10^3/uL (0.1-1.4); BASOPHILS % (AUTO) 0.1 % (0-2); EOSINOPHILS % (AUTO) 1.7 % (0-6); HEMATOCRIT 39.9 % (36.0-47.0); HEMOGLOBIN 13.5 g/dL (12.0-15.5); LYMPHOCYTES % (AUTO) 13.4 % (13-45); MEAN CORPUSCULAR HEMOGLOBIN 28.2 pg (27.0-33.4); MEAN CORPUSCULAR HGB CONC 33.8 g/dL (32.0-36.0); MEAN CORPUSCULAR VOLUME 84 fl (80-97); MONOCYTES % (AUTO) 17.9 % (3-13); PLATELET COUNT 144 10^3/uL (150-450); RED BLOOD COUNT 4.77 10^6/uL (3.72-5.28); RED CELL DISTRIBUTION WIDTH 14.4 % (11.5-14.0); SEGMENTED NEUTROPHILS % (AUTO) 66.9 % (42-78); TOTAL CELLS COUNTED % (AUTO) 100 %; WHITE BLOOD COUNT 4.5 10^3/uL (4.0-10.5)
[2019-09-07 07:17] LABS: ANION GAP 12 (5-19); BLOOD UREA NITROGEN 41 mg/dL (7-20); CARBON DIOXIDE 27 mmol/L (22-30); CHLORIDE 100 mmol/L (98-107); GLUCOSE 120 mg/dL (75-110); POTASSIUM 3.7 mmol/L (3.6-5.0)
--- NOTE | 2019-09-07 09:02 | RADIOLOGY REPORT (SQ) ---
EXAM DESCRIPTION: KUB/ABDOMEN (SINGLE VIEW) COMPLETED DATE/TIME: 09/07/2019 1:56 am REASON FOR STUDY: Check Placement of NG Tube COMPARISON: CT abdomen and pelvis, 09/06/2019 NUMBER OF VIEWS: One view. TECHNIQUE: Supine radiographic image of the abdomen acquired. LIMITATIONS: None. FINDINGS: BOWEL GAS PATTERN: There are dilated loops of small bowel throughout the abdomen with rela tive paucity of bowel gas in the distal small bowel and colon. CALCIFICATIONS: No suspicious calcifications. SOFT TISSUES: Excreted contrast in the urinary bladder. HARDWARE: Extensive vascular stents. Esophagogastric tube tip projects over the left upper abdomen l ikely in the gastric lumen. The side hole is at the GE junction. BONES: No acute fracture. No worrisome bone lesions. OTHER: No other significant finding. IMPRESSION: 1. Esophagogastric tube tip is likely in the gastric lumen. 2. Small bowel obstruction. TECHNICAL DOCUMENTATION: JOB ID: [id number] [employer]- All Rights Reserved Reading location - IP/workstation name: [email or web address]
--- NOTE | 2019-09-07 10:04 | PDOC PROGRESS REPORT ---
Subjective Progress Note for:: 09/07/19 Reason For Visit: SMALL BOWEL OBSTRUCTION Patient feels better. Nasogastric tube putting out feculent smelling small bowel contents. There is no output in the colostomy bag. Of note patient states she has a colostomy created for diverticular disease she believes over 5 years ago in [facility]. Physical Exam Vital Signs: Temp Pulse Resp BP Pulse Ox 98.1 F 81 18 133/73 H 94 09/07/19 07:39 09/07/19 07:39 09/07/19 07:39 09/07/19 07:39 09/07/19 07:39 Intake & Output 09/06/19 09/07/19 09/08/19 06:59 06:59 06:59 Intake Total 1000 Output Total 850 Balance 150 Weight 51.7 kg General appearance: PRESENT: no acute distress, other - Thick yellow-orange feculent smelling smoke GI/Abdominal exam: PRESENT: other - The abdomen is soft nontender no peritoneal signs no rigidity no distention. Ostomy appliance removed, and lubricated index finger used to visualize the colostomy. There is no evidence of obstruction. The fascial opening is not narrowed. Results Laboratory Results: 09/07/19 06:21 09/07/19 06:21 09/06/19 09/06/19 09/06/19 17:25 17:25 17:25 WBC 5.7 RBC 4.95 Hgb 13.9 Hct 41.6 MCV 84 MCH 28.1 MCHC 33.4 RDW 14.6 H Plt Count 167 Seg Neutrophils % 73.8 Sodium 137.8 Potassium 4.1 Chloride 94 L Carbon Dioxide 30 Anion Gap 14 BUN 52 H Creatinine 1.34 H Est GFR ( Amer) 46 L Glucose 111 H Calcium 11.6 H Total Bilirubin 0.8 AST 27 Alkaline Phosphatase 88 Total Protein 8.4 H Albumin 4.8 Lipase 59.8 Urine Color Urine Appearance Urine pH Ur Specific [place] Urine Protein Urine Glucose (UA) Urine Ketones Urine Blood Urine Nitrite Ur Leukocyte Esterase Urine WBC (Auto) Urine RBC (Auto) 09/06/19 09/07/19 09/07/19 22:24 06:21 06:21 WBC 4.5 RBC 4.77 Hgb 13.5 Hct 39.9 MCV 84 MCH 28.2 MCHC 33.8 RDW 14.4 H Plt Count 144 L Seg Neutrophils % 66.9 Sodium 138.8 Potassium 3.7 Chloride 100 Carbon Dioxide 27 Anion Gap 12 BUN 41 H Creatinine 1.05 Est GFR ( Amer) > 60 Glucose 120 H Calcium 11.0 H Total Bilirubin AST Alkaline Phosphatase Total Protein Albumin Lipase Urine Color YELLOW Urine Appearance CLEAR Urine pH 6.0 Ur Specific [place] 1.027 Urine Protein >=500 H Urine Glucose (UA) NEGATIVE Urine Ketones NEGATIVE Urine Blood MODERATE H Urine Nitrite NEGATIVE Ur Leukocyte Esterase NEGATIVE Urine WBC (Auto) 4 Urine RBC (Auto) 51 09/06/19 17:25 Troponin I 0.024 Impressions: Chest X-Ray 09/06/19 20:30 IMPRESSION: No acute cardiopulmonary process copyright 2010 [employer]- All Rights Reserved Head CT 09/06/19 20:30 IMPRESSION: 1. No hemorrhage or mass lesion. 2. Age-related volume loss with nonspecific white matter changes suggestive of small vessel ischemic disease. Abdomen/Pelvis CT 09/06/19 20:31 IMPRESSION: Small bowel obstruction, as above with probable transition point associated with a hernia of the anterior left hemipelvis abdominal or pelvic wall. Small amount of free fluid. No free air. Relative decompression of colon. Aneurysmal dilatation of the abdominal aorta measuring 5.7 x 5.7 cm. Recommend follow-up as per below. Post surgical changes with endovascular stent graft in place. No free air. Severe left renal atrophy. For management of fusiform aneurysmal abdominal aortas: <2.6 cm aorta, no follow-up is recommended. 2.6-2.9 cm aorta, recommend follow-up every 5 years for aortas meeting the criteria for AAA (>1.5 x proximal normal segment; no f/u if < 1.5 x proximal normal segment; no f/u for aortas < 2.6 cm). 3.0-3.4 cm AAA, recommend follow-up every 3 years. 3.5-3.9 cm AAA, recommend follow-up every 2 years. 4.0-4.4 cm AAA, recommend follow-up every 12 months and recommend vascular consultation. 4.5-5.4 cm AAA, recommend follow-up every 6 months and recommend vascular consultation. >5.5 cm AAA, recommend referral to vascular specialist. For management of saccular abdominal aortic aneurysms of any size, recommend vascular consultation. Note: for AAA enlargement of >0.5 cm in 6 months or >1 cm in 1 year, recommend vascular consultation. References: J Am Donald Radiol 2013; 10(10):789-794; J Vasc Surg. 2018; 67:2-77 TECHNICAL DOCUMENTATION: Quality ID # 436: Final reports with documentation of one or more dose reduction techniques (e.g., Automated exposure control, adjustment of the mA and/or kV according to patient size, use of iterative reconstruction technique) copyright 2011 [employer]- All Rights Reserved KUB X-Ray 09/06/19 22:58 IMPRESSION: 1. Esophagogastric tube tip is likely in the gastric lumen. 2. Small bowel obstruction. Assessment & Plan - Diagnosis (1) Small bowel obstruction due to adhesions Is this a current diagnosis for this admission?: Yes Plan: Impression: Small bowel obstruction clinical presentation, persisting nasogastric tube drainage. No output from diverting colostomy. No evidence of sepsis. Plan: 1. Patient does not have an acute abdomen. She feels a little better, however I am concerned about the feculent nature of the small bowel effluent. 2. We will continue nasogastric decompression, and increase IV fluids. 3. If patient does not open up the next 24 to 48 hours, she may require exploratory laparotomy and this was discussed with her. - Time Time Spent with patient: Less than 15 minutes Medications reviewed and adjusted accordingly: Yes Anticipated discharge: Home
[2019-09-07] MEDS: ONDANSETRON HCL INJ/PF 4 MG/2 ML SDV IV PRN (21:40)
[2019-09-07] MEDS: DEXTROSE 5%-LACTATED RINGERS 1,000 ML IV PRN (23:25)
[2019-09-08] MEDS: METOPROLOL TARTRATE PF/INJ 5 MG/5 ML SDV IV SCH ×3 (02:03→17:01)
[2019-09-08] MEDS: MORPHINE SULFATE 10 MG/ML INJ IV PRN (10:15)
[2019-09-08] MEDS: DEXTROSE 5%-LACTATED RINGERS 1,000 ML IV PRN ×3 (10:16→22:14)
[2019-09-08] MEDS: ONDANSETRON HCL INJ/PF 4 MG/2 ML SDV IV PRN ×2 (10:23→17:13)
--- NOTE | 2019-09-08 20:45 | PDOC PROGRESS REPORT ---
Subjective Progress Note for:: 09/08/19 Subjective:: This is an 79-year-old female admitted with a small bowel obstruction. The patient denies any output or flatus from her colostomy. She denies chest pain, shortness of breath, fevers, chills, nausea, vomiting, dizziness, orthostasis, blurry vision. She still has a high amount of NG tube output. Reason For Visit: SMALL BOWEL OBSTRUCTION Physical Exam Vital Signs: Temp Pulse Resp BP Pulse Ox 97.4 F 53 L 16 144/64 H 95 09/08/19 16:42 09/08/19 19:00 09/08/19 16:42 09/08/19 16:42 09/08/19 16:42 Intake & Output 09/07/19 09/08/19 09/09/19 06:59 06:59 06:59 Intake Total 1000 1000 1000 Output Total 914 535 8838 Balance 150 140 -850 Weight 51.7 kg 52 kg General appearance: PRESENT: no acute distress, cooperative Head exam: PRESENT: atraumatic, normocephalic Eye exam: PRESENT: EOMI, PERRLA. ABSENT: scleral icterus Mouth exam: PRESENT: moist, neck supple Neck exam: ABSENT: meningismus, tenderness, thyromegaly, tracheal deviation Respiratory exam: PRESENT: clear to auscultation josefina, unlabored. ABSENT: chest wall tenderness, tachypnea, wheezes Cardiovascular exam: ABSENT: tachycardia Vascular exam: PRESENT: normal capillary refill GI/Abdominal exam: PRESENT: distended - mild, soft. ABSENT: rebound, rigid, tenderness Rectal exam: PRESENT: deferred Extremities exam: ABSENT: clubbing Neurological exam: PRESENT: alert, awake, oriented to person, oriented to place, oriented to time, oriented to situation, CN II-XII grossly intact. ABSENT: motor sensory deficit Psychiatric exam: ABSENT: agitated, anxious, depressed Focused psych exam: ABSENT: delusional Skin exam: ABSENT: cyanosis, erythema, jaundice Results Laboratory Results: 09/07/19 06:21 09/07/19 06:21 09/06/19 22:24 Catheterized Urine Urine Culture - Final NO GROWTH 2 DAYS 09/06/19 17:25 Troponin I 0.024 Impressions: Chest X-Ray 09/06/19 20:30 IMPRESSION: No acute cardiopulmonary process copyright 2011 [employer]- All Rights Reserved Head CT 09/06/19 20:30 IMPRESSION: 1. No hemorrhage or mass lesion. 2. Age-related volume loss with nonspecific white matter changes suggestive of small vessel ischemic disease. Abdomen/Pelvis CT 09/06/19 20:31 IMPRESSION: Small bowel obstruction, as above with probable transition point associated with a hernia of the anterior left hemipelvis abdominal or pelvic wall. Small amount of free fluid. No free air. Relative decompression of colon. Aneurysmal dilatation of the abdominal aorta measuring 5.7 x 5.7 cm. Recommend follow-up as per below. Post surgical changes with endovascular stent graft in place. No free air. Severe left renal atrophy. For management of fusiform aneurysmal abdominal aortas: <2.6 cm aorta, no follow-up is recommended. 2.6-2.9 cm aorta, recommend follow-up every 5 years for aortas meeting the criteria for AAA (>1.5 x proximal normal segment; no f/u if < 1.5 x proximal normal segment; no f/u for aortas < 2.6 cm). 3.0-3.4 cm AAA, recommend follow-up every 3 years. 3.5-3.9 cm AAA, recommend follow-up every 2 years. 4.0-4.4 cm AAA, recommend follow-up every 12 months and recommend vascular consultation. 4.5-5.4 cm AAA, recommend follow-up every 6 months and recommend vascular consultation. >5.5 cm AAA, recommend referral to vascular specialist. For management of saccular abdominal aortic aneurysms of any size, recommend vascular consultation. Note: for AAA enlargement of >0.5 cm in 6 months or >1 cm in 1 year, recommend vascular consultation. References: J Am Donald Radiol 2013; 10(10):789-794; J Vasc Surg. 2018; 67:2-77 TECHNICAL DOCUMENTATION: Quality ID # 436: Final reports with documentation of one or more dose reduction techniques (e.g., Automated exposure control, adjustment of the mA and/or kV according to patient size, use of iterative reconstruction technique) copyright 2010 [employer]- All Rights Reserved KUB X-Ray 09/06/19 22:58 IMPRESSION: 1. Esophagogastric tube tip is likely in the gastric lumen. 2. Small bowel obstruction. Assessment & Plan - Diagnosis (1) Small bowel obstruction due to adhesions Is this a current diagnosis for this admission?: Yes - Time Time Spent with patient: Less than 15 minutes - Plan Summary Plan Summary: This is an 79-year-old female admitted with a small bowel obstruction. The patient has not had any output from her colostomy. She still has high NG tube output. Plan for repeat x-rays tomorrow with continued NG decompression. If the patient continues to exhibit signs of a bowel obstruction, she may require operative intervention. Further planning to be determined after x-rays and lab work are completed tomorrow.
[2019-09-09] MEDS: METOPROLOL TARTRATE PF/INJ 5 MG/5 ML SDV IV SCH ×3 (01:26→18:17)
[2019-09-09 05:17] LABS: HEMATOCRIT 39.8 % (36.0-47.0); HEMOGLOBIN 13.3 g/dL (12.0-15.5); MEAN CORPUSCULAR HGB CONC 33.3 g/dL (32.0-36.0); MEAN CORPUSCULAR VOLUME 84 fl (80-97); RED BLOOD COUNT 4.74 10^6/uL (3.72-5.28); WHITE BLOOD COUNT 6.3 10^3/uL (4.0-10.5)
[2019-09-09 05:36] LABS: PLATELET COUNT 93 10^3/uL (150-450)
[2019-09-09 05:40] LABS: ABSOLUTE LYMPHOCYTES# (MANUAL) 1.1 10^3/uL (0.5-4.7); ABSOLUTE MONOCYTES # (MANUAL) 0.6 10^3/uL (0.1-1.4); ANION GAP 6 (5-19); BASOPHILS % (MANUAL) 0 % (0-2); BLOOD UREA NITROGEN 25 mg/dL (7-20); CALCIUM 10.6 mg/dL (8.4-10.2); CARBON DIOXIDE 38 mmol/L (22-30); CHLORIDE 99 mmol/L (98-107); EOSINOPHILS % (MANUAL) 4 % (0-6); GLUCOSE 103 mg/dL (75-110); LYMPHOCYTES % (MANUAL) 18 % (13-45); MONOCYTES % (MANUAL) 10 % (3-13); POTASSIUM 3.1 mmol/L (3.6-5.0); SEGMENTED NEUTROPHILS % (MAN) 68 % (42-78); TOTAL CELLS COUNTED 100
[2019-09-09 05:42] LABS: ANISOCYTOSIS SLIGHT; OVALOCYTES 1+; PLATELET COMMENT DECREASED; POIKILOCYTOSIS 1+; TOXIC GRANULATION SLIGHT
[2019-09-09] MEDS: DEXTROSE 5%-LACTATED RINGERS 1,000 ML IV PRN ×2 (06:10→18:17)
--- NOTE | 2019-09-09 08:08 | RADIOLOGY REPORT (SQ) ---
EXAM DESCRIPTION: KUB/ABDOMEN (SINGLE VIEW) COMPLETED DATE/TIME: 09/09/2019 6:38 am REASON FOR STUDY: SBO COMPARISON: CT abdomen pelvis 09/06/2019 KUB 09/07/2019 NUMBER OF VIEWS: One view. TECHNIQUE: Supine radiographic image of the abdomen acquired. LIMITATIONS: None. FINDINGS: BOWEL GAS PATTERN: Persistent marked dilated small bowel loops in the mid abdomen unchange d prior studies. Colon grossly decompressed. Stomach decompressed with a nasogastric tube. CALCIFICATIONS: No suspicious calcifications. SOFT TISSUES: No gross mass or suggestion of organomegaly. HARDWARE: Thoracic and abdominal aortic stent graft with dense along the major visceral vessels. Lef t hip replacement BONES: No acute fracture. No worrisome bone lesions. OTHER: No other significant finding. IMPRESSION: Nasogastric tube decompresses the stomach. Persistent marked dilated small bowel loops in the mid abdomen TECHNICAL DOCUMENTATION: JOB ID: [id number] [employer]- All Rights Reserved Reading location - IP/workstation name: [email or web address]
[2019-09-09] MEDS: ONDANSETRON HCL INJ/PF 4 MG/2 ML SDV IV PRN (09:52)
[2019-09-09] MEDS: MORPHINE SULFATE 10 MG/ML INJ IV PRN (09:52)
--- NOTE | 2019-09-09 11:40 | PDOC PROGRESS REPORT ---
Subjective Progress Note for:: 09/09/19 Subjective:: This is an 79-year-old female admitted with a small bowel obstruction. She reports that she feels "fine". The patient denies any output or flatus from her colostomy. She denies chest pain, shortness of breath, fevers, chills, nausea, vomiting, dizziness, orthostasis, blurry vision. She still has a high amount of NG tube output. Reason For Visit: SMALL BOWEL OBSTRUCTION Physical Exam Vital Signs: Temp Pulse Resp BP Pulse Ox 97.4 F 66 16 157/59 H 96 09/09/19 07:52 09/09/19 07:52 09/09/19 07:52 09/09/19 07:52 09/09/19 07:52 Intake & Output 09/08/19 09/09/19 09/10/19 06:59 06:59 06:59 Intake Total 1000 2929 Output Total 860 2950 Balance 140 -21 Weight 52 kg 52.8 kg Exam: General appearance: PRESENT: no acute distress, cooperative Head exam: PRESENT: atraumatic, normocephalic Eye exam: PRESENT: EOMI, PERRLA. ABSENT: scleral icterus Mouth exam: PRESENT: moist, neck supple Neck exam: ABSENT: meningismus, tenderness, thyromegaly, tracheal deviation Respiratory exam: PRESENT: clear to auscultation josefina, unlabored. ABSENT: chest wall tenderness, tachypnea, wheezes Cardiovascular exam: ABSENT: tachycardia Vascular exam: PRESENT: normal capillary refill GI/Abdominal exam: PRESENT: distended - mild, soft. ABSENT: rebound, rigid, tenderness. No output from ileostomy (air or fluid) Rectal exam: PRESENT: deferred Extremities exam: ABSENT: clubbing Neurological exam: PRESENT: alert, awake, oriented to person, oriented to place, oriented to time, oriented to situation, CN II-XII grossly intact. ABSENT: motor sensory deficit Psychiatric exam: ABSENT: agitated, anxious, depressed Focused psych exam: ABSENT: delusional Skin exam: ABSENT: cyanosis, erythema, jaundice Results Laboratory Results: 09/09/19 04:56 09/09/19 04:56 09/09/19 09/09/19 04:56 04:56 WBC 6.3 RBC 4.74 Hgb 13.3 Hct 39.8 MCV 84 MCH 28.0 MCHC 33.3 RDW 14.0 Plt Count 93 L Seg Neutrophils % Not Reportable Sodium 142.5 Potassium 3.1 L Chloride 99 Carbon Dioxide 38 H Anion Gap 6 BUN 25 H Creatinine 1.02 Est GFR ( Amer) > 60 Glucose 103 Calcium 10.6 H 09/06/19 22:24 Catheterized Urine Urine Culture - Final NO GROWTH 2 DAYS 09/06/19 17:25 Troponin I 0.024 Impressions: Chest X-Ray 09/06/19 20:30 IMPRESSION: No acute cardiopulmonary process copyright 2011 [employer]- All Rights Reserved Head CT 09/06/19 20:30 IMPRESSION: 1. No hemorrhage or mass lesion. 2. Age-related volume loss with nonspecific white matter changes suggestive of small vessel ischemic disease. Abdomen/Pelvis CT 09/06/19 20:31 IMPRESSION: Small bowel obstruction, as above with probable transition point associated with a hernia of the anterior left hemipelvis abdominal or pelvic wall. Small amount of free fluid. No free air. Relative decompression of colon. Aneurysmal dilatation of the abdominal aorta measuring 5.7 x 5.7 cm. Recommend follow-up as per below. Post surgical changes with endovascular stent graft in place. No free air. Severe left renal atrophy. For management of fusiform aneurysmal abdominal aortas: <2.6 cm aorta, no follow-up is recommended. 2.6-2.9 cm aorta, recommend follow-up every 5 years for aortas meeting the criteria for AAA (>1.5 x proximal normal segment; no f/u if < 1.5 x proximal normal segment; no f/u for aortas < 2.6 cm). 3.0-3.4 cm AAA, recommend follow-up every 3 years. 3.5-3.9 cm AAA, recommend follow-up every 2 years. 4.0-4.4 cm AAA, recommend follow-up every 12 months and recommend vascular consultation. 4.5-5.4 cm AAA, recommend follow-up every 6 months and recommend vascular consultation. >5.5 cm AAA, recommend referral to vascular specialist. For management of saccular abdominal aortic aneurysms of any size, recommend vascular consultation. Note: for AAA enlargement of >0.5 cm in 6 months or >1 cm in 1 year, recommend vascular consultation. References: J Am Donald Radiol 2013; 10(10):789-794; J Vasc Surg. 2018; 67:2-77 TECHNICAL DOCUMENTATION: Quality ID # 436: Final reports with documentation of one or more dose reduction techniques (e.g., Automated exposure control, adjustment of the mA and/or kV according to patient size, use of iterative reconstruction technique) copyright 2011 [employer]- All Rights Reserved KUB X-Ray 09/09/19 06:00 IMPRESSION: Nasogastric tube decompresses the stomach. Persistent marked dilated small bowel loops in the mid abdomen Assessment & Plan - Diagnosis (1) Small bowel obstruction due to adhesions Is this a current diagnosis for this admission?: Yes - Time Time Spent with patient: Less than 15 minutes - Plan Summary Plan Summary: This is an 79-year-old female admitted with small bowel obstruction. The patient continues to have symptoms of a small bowel obstruction. I have reviewed her KUB today. There is no improvement whatsoever. She still has distended loops of small bowel. She has no air or liquid coming from her colostomy. Unfortunately, I believe that the patient is failed conservative management of her small bowel obstruction. I have recommended that she undergo exploratory laparotomy with lysis of adhesions. The patient and her son have agreed to this. Risks/benefits discussed, informed consent obtained, and all questions answered.
[2019-09-09] MEDS: POTASSI CL 20 MEQ/50 ML RIDER 20 MEQ/50 ML RTUPB IV SCH ×2 (13:46→16:39)
[2019-09-10] MEDS: METOPROLOL TARTRATE PF/INJ 5 MG/5 ML SDV IV SCH ×3 (01:59→17:19)
[2019-09-10] MEDS: DEXTROSE 5%-LACTATED RINGERS 1,000 ML IV PRN ×2 (02:00→15:51)
[2019-09-10 06:50] LABS: BLOOD UREA NITROGEN 17 mg/dL (7-20); CALCIUM 9.9 mg/dL (8.4-10.2); CARBON DIOXIDE 37 mmol/L (22-30); GLUCOSE 89 mg/dL (75-110); POTASSIUM 3.2 mmol/L (3.6-5.0)
[2019-09-10 06:56] LABS: CHLORIDE 100 mmol/L (98-107)
[2019-09-10 06:58] LABS: ANION GAP 4 (5-19)
[2019-09-10] MEDS ORDERED: PHENYLEPHRINE HCL INJ/PF 10 MG/1 ML SDV ONE (09:39)
[2019-09-10] MEDS ORDERED: GLYCOPYRROLATE 1 MG/5 ML VIAL ONE (09:39)
[2019-09-10] MEDS ORDERED: NEOSTIGMINE METHYLSULFATE 10 MG/10 ML VIAL ONE (09:39)
[2019-09-10] MEDS ORDERED: VECURONIUM BROMIDE INJ 10 MG VIAL IV ONE (09:39)
[2019-09-10] MEDS ORDERED: SUCCINYLCHOLINE CHLORIDE INJ 200 MG/10 ML VIAL ONE (09:39)
--- NOTE | 2019-09-10 10:07 | XCELERA REPORT ---
[address] [address] Transthoracic Echocardiogram Report Name: STEPHANIE MILLER Age: 79 yrs Gender: Female : 1940 Patient Status: Inpatient Patient Location: [address] [place] [address] Study Date: 09/10/2019 08:25 AM Height: 65 in Weight: 116 lb BSA: 1.6 m2 Procedure: A complete two-dimensional transthoracic echocardiogram was performed (2D, M-mode, spectral and color flow Doppler). The study was technically adequate with some images being suboptimal in quality. Reason For Study: CHF Ordering Physician: NICK LAND Performed By: Yamilex Howe Interpretation Summary The left ventricular ejection fraction is normal. There is mild concentric left ventricular hypertrophy. Doppler measurements suggest pseudonormalized left ventricular relaxation, which is associated with grade II/IV or mild to moderate diastolic dysfunction The left ventricle is grossly normal size. Wall motion cannot be accurately commented on, but no definite regional wall motion abnormalities noted. The right ventricular systolic function is normal. The left atrium is mildly dilated. The right atrium is normal in size There is a mild amount of mitral regurgitation There is no mitral valve stenosis. No aortic regurgitation is present. There is no aortic valve stenosis There is a mild amount of tricuspid regurgitation Right ventricular systolic pressure is at the upper limits of normal The aortic root is not well visualized but is probably normal size. The inferior vena cava appeared normal and decreased > 50% with respiration (RAP 5-10 mmHg) Minimal pericardial effusion. MMode/2D Measurements & Calculations RVDd: 2.6 cm LVIDd: 4.3 cm FS: 33.2 % Ao root diam: 2.7 cm IVSd: 0.99 cm LVIDs: 2.8 cm EDV(Teich): 81.0 ml Ao root area: 5.9 cm2 LVPWd: 1.0 cm ESV(Teich): 30.6 ml LA dimension: 3.1 cm EF(Teich): 62.2 % Doppler Measurements & Calculations MV E max brigid: MV P1/2t max brigid: Ao V2 max: LV V1 max P.9 cm/sec 58.6 cm/sec 135.1 cm/sec 3.8 mmHg MV A max brigid: MV P1/2t: 81.0 msec Ao max P.3 mmHg LV V1 max: 89.1 cm/sec MVA(P1/2t): 2.7 cm2 97.2 cm/sec MV E/A: 0.68 MV dec slope: 212.0 cm/sec2 MV dec time: 0.27 sec PA V2 max: TR max brigid: MV P1/2t-pr_phl: 64.8 cm/sec 252.5 cm/sec 81.0 msec PA max PG: TR max P.5 mmHg 1.7 mmHg Left Ventricle The left ventricle is grossly normal size. There is mild concentric left ventricular hypertrophy. The left ventricular ejection fraction is normal. Doppler measurements suggest pseudonormalized left ventricular relaxation, which is associated with grade II/IV or mild to moderate diastolic dysfunction. Wall motion cannot be accurately commented on, but no definite regional wall motion abnormalities noted. Right Ventricle The right ventricle is grossly normal size. There is normal right ventricular wall thickness. The right ventricular systolic function is normal. Atria The right atrium is normal in size. The left atrium is mildly dilated. Interarterial septum not well visualized and not well dopplered. Cannot comment on ASD/PFO presence. Mitral Valve The mitral valve leaflets are sclerotic, but show no functional abnormalities. There is no mitral valve stenosis. There is a mild amount of mitral regurgitation. Aortic Valve The aortic valve is mildly calcified. There is no aortic valve stenosis. No aortic regurgitation is present. Tricuspid Valve The tricuspid valve is not well visualized, but is grossly normal. There is no tricuspid stenosis. There is a mild amount of tricuspid regurgitation. Right ventricular systolic pressure is at the upper limits of normal. Pulmonic Valve The pulmonic valve is not well visualized. Great Vessels The aortic root is not well visualized but is probably normal size. The inferior vena cava appeared normal and decreased > 50% with respiration (RAP 5-10 mmHg). Effusions Minimal pericardial effusion. : NICK LAND Shyamal
[2019-09-10] MEDS: ONDANSETRON HCL INJ/PF 4 MG/2 ML SDV IV PRN (10:28)
[2019-09-10] MEDS ORDERED: DEXAMETHASONE SOD PHOSPHATE INJ 4 MG/1 ML VIAL ONE (10:45)
[2019-09-10] MEDS ORDERED: ONDANSETRON HCL INJ/PF 4 MG/2 ML SDV ONE (10:45)
[2019-09-10] MEDS ORDERED: FENTANYL CITRATE INJ/PF 100 MCG/2 ML AMPUL ONE (10:45)
[2019-09-10] MEDS ORDERED: EPHEDRINE SULFATE INJ 50 MG/1 ML AMPULE ONE (10:45)
[2019-09-10] MEDS ORDERED: MIDAZOLAM 2 MG/2 ML INJ ONE (10:45)
[2019-09-10] MEDS ORDERED: PROPOFOL INJ 200 MG/20 ML VIAL IV ONE (10:45)
--- NOTE | 2019-09-10 10:52 | PDOC PROGRESS REPORT ---
Subjective Progress Note for:: 09/10/19 Subjective:: Reports no gas in her ostomy; still draining from nasogastric tube Reason For Visit: SMALL BOWEL OBSTRUCTION Physical Exam Vital Signs: Temp Pulse Resp BP Pulse Ox 97.3 F 57 L 16 168/70 H 94 09/10/19 03:33 09/10/19 07:00 09/10/19 03:33 09/10/19 03:33 09/10/19 03:33 Intake & Output 09/09/19 09/10/19 09/11/19 06:59 06:59 06:59 Intake Total 2929 2065 Output Total 2950 800 Balance -21 1265 Weight 52.8 kg 52.3 kg General appearance: PRESENT: mild distress GI/Abdominal exam: PRESENT: other - The abdomen is slightly distended, and tender. There is no rigidity. There is no gas or stool in the ostomy bag. Results Laboratory Results: 09/09/19 04:56 09/10/19 06:11 09/09/19 09/10/19 04:56 06:11 Sodium 141.3 Potassium 3.2 L Chloride 100 Carbon Dioxide 37 H Anion Gap 4 L BUN 17 Creatinine 0.86 Est GFR ( Amer) > 60 Glucose 89 Calcium 9.9 Magnesium 2.1 09/06/19 17:25 Troponin I 0.024 Impressions: Chest X-Ray 09/06/19 20:30 IMPRESSION: No acute cardiopulmonary process copyright 2011 [employer]- All Rights Reserved Head CT 09/06/19 20:30 IMPRESSION: 1. No hemorrhage or mass lesion. 2. Age-related volume loss with nonspecific white matter changes suggestive of small vessel ischemic disease. Abdomen/Pelvis CT 09/06/19 20:31 IMPRESSION: Small bowel obstruction, as above with probable transition point associated with a hernia of the anterior left hemipelvis abdominal or pelvic wall. Small amount of free fluid. No free air. Relative decompression of colon. Aneurysmal dilatation of the abdominal aorta measuring 5.7 x 5.7 cm. Recommend follow-up as per below. Post surgical changes with endovascular stent graft in place. No free air. Severe left renal atrophy. For management of fusiform aneurysmal abdominal aortas: <2.6 cm aorta, no follow-up is recommended. 2.6-2.9 cm aorta, recommend follow-up every 5 years for aortas meeting the criteria for AAA (>1.5 x proximal normal segment; no f/u if < 1.5 x proximal normal segment; no f/u for aortas < 2.6 cm). 3.0-3.4 cm AAA, recommend follow-up every 3 years. 3.5-3.9 cm AAA, recommend follow-up every 2 years. 4.0-4.4 cm AAA, recommend follow-up every 12 months and recommend vascular consultation. 4.5-5.4 cm AAA, recommend follow-up every 6 months and recommend vascular consultation. >5.5 cm AAA, recommend referral to vascular specialist. For management of saccular abdominal aortic aneurysms of any size, recommend vascular consultation. Note: for AAA enlargement of >0.5 cm in 6 months or >1 cm in 1 year, recommend vascular consultation. References: J Am Donald Radiol 2013; 10(10):789-794; J Vasc Surg. 2018; 67:2-77 TECHNICAL DOCUMENTATION: Quality ID # 436: Final reports with documentation of one or more dose reduction techniques (e.g., Automated exposure control, adjustment of the mA and/or kV according to patient size, use of iterative reconstruction technique) copyright 2011 [employer]- All Rights Reserved KUB X-Ray 09/09/19 06:00 IMPRESSION: Nasogastric tube decompresses the stomach. Persistent marked dilated small bowel loops in the mid abdomen Assessment & Plan - Diagnosis (1) Small bowel obstruction due to adhesions Is this a current diagnosis for this admission?: Yes Plan: Impression: Patient is failed to form for small bowel obstruction despite IV fluids n.p.o. and nasogastric decompression for several days. Plan: 1. We will proceed with exploratory laparotomy lysis of adhesions and necessary surgery. I discussed this with patient at length, as well as her son who is at bedside. They understand there are cardiovascular respiratory and other risks associated with this undertaking given the patient's multiple comorbidities. We have obtained a echocardiogram, the results are pending at the time of this dictation. 2. Pending duration of operation, and patient's performance, she may require transfer to ICU post procedure. - Time Time Spent with patient: 15-24 minutes Smoking Cessation Education: over 10 minutes Medications reviewed and adjusted accordingly: Yes Anticipated discharge: Home
[2019-09-10] MEDS ORDERED: CLINDAMYCIN PHOSPHATE INJ 300 MG/2 ML SDV ONE (11:36)
[2019-09-10] MEDS ORDERED: DIPHENHYDRAMINE HCL 50 MG/ML VIAL IV PRN (12:47)
[2019-09-10] MEDS ORDERED: PROMETHAZINE HCL INJ 25 MG/1 ML VIAL IV PRN ×2 (12:47)
[2019-09-10] MEDS ORDERED: OXYCODONE-ACETAMINOPHEN 5-325 MG TABLET PO PRN ×2 (12:47)
[2019-09-10] MEDS ORDERED: MORPHINE SULFATE 10 MG/ML INJ IV PRN (12:47)
[2019-09-10] MEDS ORDERED: MEPERIDINE HCL/PF INJ 25 MG/1 ML DISP.SYRIN IV PRN (12:47)
[2019-09-10] MEDS ORDERED: FENTANYL CITRATE INJ/PF 100 MCG/2 ML AMPUL IV PRN ×3 (12:47)
[2019-09-10] MEDS ORDERED: ONDANSETRON HCL INJ/PF 4 MG/2 ML SDV IV PRN (12:47)
--- NOTE | 2019-09-10 13:27 | Operative Report ---
Operative Report DATE OF SURGERY: 09/10/19 PREOPERATIVE DIAGNOSIS: 1. Small bowel obstruction. 2. History of thoracoabd ominal aortic reconstruction. 3. Diverting colostomy POSTOPERATIVE DIAGNOSIS: Same with intra-abdominal adhesions, with dominant lesion obstructing the mid ileum OPERATION: 1. Exploratory laparotomy. 2. Intraoperative lysis of adhesions SURGEON: NATHALIA SIMPSON ANESTHESIA: GA TISSUE REMOVED OR ALTERED: None COMPLICATIONS: None ESTIMATED BLOOD LOSS: Scant INTRAOPERATIVE FINDINGS: See below PROCEDURE: The patient was taken from the preop holding her to the main operating room where general anesthesia was induced by Dr. Ramirez. The arms were abducted, ostomy appliance removed, the abdomen prepped and draped sterile fashion. Surgical plan surgical timeout were conducted. The abdomen was opened the standard midline incision above and below the umbilicus. Of note the patient had previous colon resection, and diverting colostomy. The peritoneal cavity was sharply entered uneventfully. The greater omentum was stuck to the anterior abdominal wall both on the left and right sides of the line. The majority of the omentum was taken off of the anterior abdominal wall to facilitate easy access into the peritoneal cavity. The findings were significant for dilated jejunum, duodenum and stomach. In fact the stomach was massively dilated. Using visual and manual techniques, we were able to immediately identify a dominant, high-grade obstruction caused by a well-developed adhesion going from the mesentery to the posterior lateral pelvic wall above the ostomy. This adhesion was divided electrocautery. The findings were significant for an indentation in the small bowel wall at the level of the serosa, but no evidence of ischemia. The small bowel proximally which consisted primarily of the jejunum was mildly hemorrhagic in areas but quickly pinked up. Of note the proximal small bowel peristalsis and had nice pulses in the arcade. We now proceeded to milk the succus entericus in a retrograde fashion all the way to the stomach. The anesthesia team replaced the nasogastric tube with a clean 18 Cymraes tube. Approximately a liter of material was aspirated successfully from the patient's stomach. We now took down some additional adhesions between the omentum and the intra- abdominal wall. A limited lysis of adhesions of several loops of ileum was undertaken, however we did not lyse all the adhesions down the right lower quadrant as this would put her small bowel at risk. We did run the colon from the cecum, through the right colon transverse colon and descending colon to the ostomy again through some of the adhesions. There was no clinical indication to take down any further adhesions as previously referenced. There is no evidence of tumor in the peritoneal cavity. We could palpate the aortic graft. There was no evidence of expansile masses. At this point felt the operation was complete. Sponge and needle counts are correct. We irrigated the peritoneal cavity check for bleeding there was none. At the site of lysis of adhesions of the small bowel, specifically the ileum, and the right lower quadrant check for any serosal injury and there was none. The abdomen was closed with 2 double-stranded #1 PDS sutures, tying the knot at the level of the umbilicus. Skin was approximated with soledad, and new ostomy appliance installed. Patient tolerated procedure well, extubated, taken to recovery in stable conditi on.
[2019-09-10] MEDS ORDERED: POTASSI CL 20 MEQ/50 ML RIDER 20 MEQ/50 ML RTUPB IV ONE (13:36)
[2019-09-10] MEDS: POTASSIUM CHLORIDE 20 MEQ/50 ML RTU IV SCH ×3 (13:45→21:18)
[2019-09-10] MEDS ORDERED: ACETAMINOPHEN 1,000 MG/100 ML RTUPB IV ONE (14:28)
[2019-09-10] MEDS: CLINDAMYCIN 600 MG/D5W RTU 600 MG/50 ML RTUPB IV SCH (17:18)
[2019-09-10] MEDS: ACETAMINOPHEN 1,000 MG/100 ML RTUPB IV SCH ×2 (17:47→23:14)
[2019-09-10] MEDS ORDERED: ACETAMINOPHEN INJ/PF 1000 MG/100 ML SDV IV SCH (18:00)
[2019-09-10] MEDS: MORPHINE SULFATE 10 MG/ML INJ IV PRN (22:06)
[2019-09-11] MEDS: METOPROLOL TARTRATE PF/INJ 5 MG/5 ML SDV IV SCH ×3 (01:56→17:08)
[2019-09-11] MEDS: CLINDAMYCIN 600 MG/D5W RTU 600 MG/50 ML RTUPB IV SCH ×3 (01:56→17:08)
[2019-09-11] MEDS: ACETAMINOPHEN 1,000 MG/100 ML RTUPB IV SCH ×3 (05:21→17:07)
[2019-09-11] MEDS: DEXTROSE 5%-LACTATED RINGERS 1,000 ML IV PRN ×2 (05:29→14:24)
[2019-09-11 06:40] LABS: ABSOLUTE EOSINOPHILS # (AUTO) 0.1 10^3/uL (0.0-0.6); ABSOLUTE LYMPHOCYTES (AUTO) 1.4 10^3/uL (0.5-4.7); ABSOLUTE MONOCYTES (AUTO) 0.7 10^3/uL (0.1-1.4); ABSOLUTE NEUT (AUTO) 5.9 10^3/uL (1.7-8.2); BASOPHILS % (AUTO) 0.3 % (0-2); HEMATOCRIT 35.2 % (36.0-47.0); MEAN CORPUSCULAR HEMOGLOBIN 28.2 pg (27.0-33.4); MEAN CORPUSCULAR HGB CONC 34.1 g/dL (32.0-36.0); MEAN CORPUSCULAR VOLUME 83 fl (80-97); MONOCYTES % (AUTO) 8.8 % (3-13); RED BLOOD COUNT 4.25 10^6/uL (3.72-5.28); RED CELL DISTRIBUTION WIDTH 13.9 % (11.5-14.0); SEGMENTED NEUTROPHILS % (AUTO) 72.9 % (42-78); TOTAL CELLS COUNTED % (AUTO) 100 %; WHITE BLOOD COUNT 8.1 10^3/uL (4.0-10.5)
[2019-09-11 06:55] LABS: ANION GAP 8 (5-19); BLOOD UREA NITROGEN 20 mg/dL (7-20); CALCIUM 9.1 mg/dL (8.4-10.2); CARBON DIOXIDE 29 mmol/L (22-30); CHLORIDE 101 mmol/L (98-107); GLUCOSE 93 mg/dL (75-110)
[2019-09-11] MEDS: MORPHINE SULFATE 10 MG/ML INJ IV PRN ×3 (07:42→17:08)
[2019-09-11 07:46] LABS: PLATELET COUNT 90 10^3/uL (150-450)
--- NOTE | 2019-09-11 12:17 | PDOC PROGRESS REPORT ---
Subjective Progress Note for:: 09/11/19 Subjective:: Feels okay. Having some mid abdominal pain. Reason For Visit: SMALL BOWEL OBSTRUCTION Physical Exam Vital Signs: Temp Pulse Resp BP Pulse Ox 98.4 F 70 16 136/67 H 95 09/11/19 08:04 09/11/19 08:04 09/11/19 08:04 09/11/19 08:04 09/11/19 08:04 Intake & Output 09/10/19 09/11/19 09/12/19 06:59 06:59 06:59 Intake Total 2065 4419 100 Output Total 800 3065 Balance 1265 1354 100 Weight 52.3 kg 54.2 kg General appearance: PRESENT: no acute distress, cooperative Respiratory exam: PRESENT: clear to auscultation josefina Cardiovascular exam: PRESENT: RRR GI/Abdominal exam: PRESENT: other - Soft, nondistended, appropriate midline abdominal tenderness without peritoneal signs. Results Laboratory Results: 09/11/19 06:06 09/11/19 06:06 09/10/19 09/11/19 09/11/19 11:50 06:06 06:06 WBC 8.1 RBC 4.25 Hgb 12.0 Hct 35.2 L MCV 83 MCH 28.2 MCHC 34.1 RDW 13.9 Plt Count 90 L Seg Neutrophils % 72.9 Sodium 138.0 Potassium 4.0 Chloride 101 Carbon Dioxide 29 Anion Gap 8 BUN 20 Creatinine 0.93 Est GFR ( Amer) > 60 Glucose 93 Calcium 9.1 Blood Type A POSITIVE Antibody Screen NEGATIVE 09/06/19 17:25 Troponin I 0.024 Impressions: Chest X-Ray 09/06/19 20:30 IMPRESSION: No acute cardiopulmonary process copyright 2011 [employer]- All Rights Reserved Head CT 09/06/19 20:30 IMPRESSION: 1. No hemorrhage or mass lesion. 2. Age-related volume loss with nonspecific white matter changes suggestive of small vessel ischemic disease. Abdomen/Pelvis CT 09/06/19 20:31 IMPRESSION: Small bowel obstruction, as above with probable transition point associated with a hernia of the anterior left hemipelvis abdominal or pelvic wall. Small amount of free fluid. No free air. Relative decompression of colon. Aneurysmal dilatation of the abdominal aorta measuring 5.7 x 5.7 cm. Recommend follow-up as per below. Post surgical changes with endovascular stent graft in place. No free air. Severe left renal atrophy. For management of fusiform aneurysmal abdominal aortas: <2.6 cm aorta, no follow-up is recommended. 2.6-2.9 cm aorta, recommend follow-up every 5 years for aortas meeting the criteria for AAA (>1.5 x proximal normal segment; no f/u if < 1.5 x proximal normal segment; no f/u for aortas < 2.6 cm). 3.0-3.4 cm AAA, recommend follow-up every 3 years. 3.5-3.9 cm AAA, recommend follow-up every 2 years. 4.0-4.4 cm AAA, recommend follow-up every 12 months and recommend vascular consultation. 4.5-5.4 cm AAA, recommend follow-up every 6 months and recommend vascular consultation. >5.5 cm AAA, recommend referral to vascular specialist. For management of saccular abdominal aortic aneurysms of any size, recommend vascular consultation. Note: for AAA enlargement of >0.5 cm in 6 months or >1 cm in 1 year, recommend vascular consultation. References: J Am Donald Radiol 2013; 10(10):789-794; J Vasc Surg. 2018; 67:2-77 TECHNICAL DOCUMENTATION: Quality ID # 436: Final reports with documentation of one or more dose reduction techniques (e.g., Automated exposure control, adjustment of the mA and/or kV according to patient size, use of iterative reconstruction technique) copyright 2011 [employer]- All Rights Reserved KUB X-Ray 09/09/19 06:00 IMPRESSION: Nasogastric tube decompresses the stomach. Persistent marked dilated small bowel loops in the mid abdomen Assessment & Plan - Diagnosis (1) Small bowel obstruction due to adhesions Is this a current diagnosis for this admission?: Yes Plan: Status post lysis of adhesion. Looks good postoperatively. Will likely DC NG tube tomorrow. DC Maria and ambulate patient today. - Time Time Spent with patient: Less than 15 minutes
[2019-09-11] MEDS: ONDANSETRON HCL INJ/PF 4 MG/2 ML SDV IV PRN (13:21)
[2019-09-12] MEDS: ACETAMINOPHEN 1,000 MG/100 ML RTUPB IV SCH ×5 (00:56→23:28)
[2019-09-12] MEDS: CLINDAMYCIN 600 MG/D5W RTU 600 MG/50 ML RTUPB IV SCH ×3 (02:32→18:10)
[2019-09-12] MEDS: METOPROLOL TARTRATE PF/INJ 5 MG/5 ML SDV IV SCH ×3 (03:41→18:11)
[2019-09-12] MEDS: DEXTROSE 5%-LACTATED RINGERS 1,000 ML IV PRN ×3 (06:39→21:39)
--- NOTE | 2019-09-12 10:01 | PDOC PROGRESS REPORT ---
Subjective Progress Note for:: 09/12/19 Reason For Visit: SMALL BOWEL OBSTRUCTION Physical Exam Vital Signs: Temp Pulse Resp BP Pulse Ox 98.5 F 75 18 149/68 H 94 09/12/19 08:17 09/12/19 08:17 09/12/19 06:57 09/12/19 08:17 09/12/19 08:17 Intake & Output 09/11/19 09/12/19 09/13/19 06:59 06:59 06:59 Intake Total 4419 2650 Output Total 3065 400 Balance 1354 2250 Weight 54.2 kg 53.1 kg Results Laboratory Results: 09/11/19 06:06 09/11/19 06:06 09/06/19 17:25 Troponin I 0.024 Impressions: Chest X-Ray 09/06/19 20:30 IMPRESSION: No acute cardiopulmonary process copyright 2011 [employer]- All Rights Reserved Head CT 09/06/19 20:30 IMPRESSION: 1. No hemorrhage or mass lesion. 2. Age-related volume loss with nonspecific white matter changes suggestive of small vessel ischemic disease. Abdomen/Pelvis CT 09/06/19 20:31 IMPRESSION: Small bowel obstruction, as above with probable transition point associated with a hernia of the anterior left hemipelvis abdominal or pelvic wall. Small amount of free fluid. No free air. Relative decompression of colon. Aneurysmal dilatation of the abdominal aorta measuring 5.7 x 5.7 cm. Recommend follow-up as per below. Post surgical changes with endovascular stent graft in place. No free air. Severe left renal atrophy. For management of fusiform aneurysmal abdominal aortas: <2.6 cm aorta, no follow-up is recommended. 2.6-2.9 cm aorta, recommend follow-up every 5 years for aortas meeting the criteria for AAA (>1.5 x proximal normal segment; no f/u if < 1.5 x proximal normal segment; no f/u for aortas < 2.6 cm). 3.0-3.4 cm AAA, recommend follow-up every 3 years. 3.5-3.9 cm AAA, recommend follow-up every 2 years. 4.0-4.4 cm AAA, recommend follow-up every 12 months and recommend vascular consultation. 4.5-5.4 cm AAA, recommend follow-up every 6 months and recommend vascular consultation. >5.5 cm AAA, recommend referral to vascular specialist. For management of saccular abdominal aortic aneurysms of any size, recommend vascular consultation. Note: for AAA enlargement of >0.5 cm in 6 months or >1 cm in 1 year, recommend vascular consultation. References: J Am Donald Radiol 2013; 10(10):789-794; J Vasc Surg. 2018; 67:2-77 TECHNICAL DOCUMENTATION: Quality ID # 436: Final reports with documentation of one or more dose reduction techniques (e.g., Automated exposure control, adjustment of the mA and/or kV according to patient size, use of iterative reconstruction technique) copyright 2011 [employer]- All Rights Reserved KUB X-Ray 09/09/19 06:00 IMPRESSION: Nasogastric tube decompresses the stomach. Persistent marked dilated small bowel loops in the mid abdomen Assessment & Plan - Diagnosis (1) Small bowel obstruction due to adhesions Is this a current diagnosis for this admission?: Yes - Time Time Spent with patient: Less than 15 minutes - Plan Summary Plan Summary: This is an 79-year-old female status post exploratory laparotomy for a bowel obstruction. She underwent lysis of adhesions. She is now postoperative day #2. The patient still has not had any flatus or stool per her left lower quadrant colostomy. She denies abdominal distention, nausea, or vomiting. She still has an NG tube in place. I will order a KUB x-ray today to image her bowel gas pattern. Her electrolytes are within normal limits. Continue NG tube until there is evidence of bowel function. Her midline wound appears clean, dry, and intact.
[2019-09-12 12:00] LABS: ANION GAP 5 (5-19); BLOOD UREA NITROGEN 18 mg/dL (7-20); CALCIUM 8.9 mg/dL (8.4-10.2); CARBON DIOXIDE 31 mmol/L (22-30); CHLORIDE 100 mmol/L (98-107); GLUCOSE 93 mg/dL (75-110); POTASSIUM 3.8 mmol/L (3.6-5.0)
[2019-09-12] MEDS: MORPHINE SULFATE 10 MG/ML INJ IV PRN ×2 (13:09→20:10)
--- NOTE | 2019-09-12 16:35 | RADIOLOGY REPORT (SQ) ---
EXAM DESCRIPTION: KUB/ABDOMEN (SINGLE VIEW) COMPLETED DATE/TIME: 09/12/2019 4:04 pm REASON FOR STUDY: SBO COMPARISON: 09/09/2019 NUMBER OF VIEWS: One view. TECHNIQUE: Supine radiographic image of the abdomen acquired. LIMITATIONS: None. FINDINGS: BOWEL GAS PATTERN: There are some gas-filled loops of small and large bowel. No significa ntly dilated loops are seen. CALCIFICATIONS: No suspicious calcifications. SOFT TISSUES: No gross mass or suggestion of organomegaly. HARDWARE: Aortoiliac stent grafts with stents apparently involving the renal arteries and the SMA. A n NG tube extends into the stomach. BONES: No acute fracture. No worrisome bone lesions. OTHER: No other significant finding. IMPRESSION: NO RADIOGRAPHIC EVIDENCE FOR ACUTE ABDOMINAL DISEASE. TECHNICAL DOCUMENTATION: JOB ID: [id number] [employer]- All Rights Reserved Reading location - IP/workstation name: [email or web address]
[2019-09-13] MEDS: CLINDAMYCIN 600 MG/D5W RTU 600 MG/50 ML RTUPB IV SCH ×3 (01:50→17:21)
[2019-09-13] MEDS: METOPROLOL TARTRATE PF/INJ 5 MG/5 ML SDV IV SCH ×3 (02:33→17:21)
[2019-09-13] MEDS: DEXTROSE 5%-LACTATED RINGERS 1,000 ML IV PRN (04:20)
[2019-09-13 06:04] LABS: ANION GAP 6 (5-19); BLOOD UREA NITROGEN 15 mg/dL (7-20); CARBON DIOXIDE 33 mmol/L (22-30); CHLORIDE 98 mmol/L (98-107); GLUCOSE 104 mg/dL (75-110); POTASSIUM 3.4 mmol/L (3.6-5.0)
[2019-09-13] MEDS: ACETAMINOPHEN 1,000 MG/100 ML RTUPB IV SCH ×2 (06:19→13:02)
[2019-09-13] MEDS ORDERED: 1/2 NORMAL SALINE IV PRN ×2 (08:30)
[2019-09-13] MEDS ORDERED: DEXTROSE 5% IV PRN ×2 (08:30)
[2019-09-13] MEDS ORDERED: POTASSIUM CHLORIDE IV PRN ×2 (08:30)
[2019-09-13] MEDS ORDERED: POTASSI CL 20 MEQ/50 ML RIDER 20 MEQ/50 ML RTUPB IV ONE (08:33)
--- NOTE | 2019-09-13 08:33 | PDOC PROGRESS REPORT ---
Subjective Progress Note for:: 09/13/19 Subjective:: No complaints. Reason For Visit: SMALL BOWEL OBSTRUCTION Physical Exam Vital Signs: Temp Pulse Resp BP Pulse Ox 98.4 F 65 18 131/52 H 96 09/13/19 06:57 09/13/19 07:00 09/13/19 06:57 09/13/19 06:57 09/13/19 06:57 Intake & Output 09/12/19 09/13/19 09/14/19 06:59 06:59 06:59 Intake Total 2650 3058 Output Total 400 575 Balance 2250 2483 Weight 53.1 kg 55.2 kg General appearance: PRESENT: no acute distress, cooperative Respiratory exam: PRESENT: clear to auscultation josefina Cardiovascular exam: PRESENT: RRR GI/Abdominal exam: PRESENT: other - Soft, nondistended, minimal tenderness. Ostomy is pink but it has no output and no air in the bag. NG output is bile tinged. Results Laboratory Results: 09/11/19 06:06 09/13/19 05:17 09/12/19 09/13/19 11:21 05:17 Sodium 136.1 L 137.2 Potassium 3.8 3.4 L Chloride 100 98 Carbon Dioxide 31 H 33 H Anion Gap 5 6 BUN 18 15 Creatinine 0.89 0.92 Est GFR ( Amer) > 60 > 60 Glucose 93 104 Calcium 8.9 9.0 09/06/19 17:25 Troponin I 0.024 Impressions: Chest X-Ray 09/06/19 20:30 IMPRESSION: No acute cardiopulmonary process copyright 2011 [employer]- All Rights Reserved Head CT 09/06/19 20:30 IMPRESSION: 1. No hemorrhage or mass lesion. 2. Age-related volume loss with nonspecific white matter changes suggestive of small vessel ischemic disease. Abdomen/Pelvis CT 09/06/19 20:31 IMPRESSION: Small bowel obstruction, as above with probable transition point associated with a hernia of the anterior left hemipelvis abdominal or pelvic wall. Small amount of free fluid. No free air. Relative decompression of colon. Aneurysmal dilatation of the abdominal aorta measuring 5.7 x 5.7 cm. Recommend follow-up as per below. Post surgical changes with endovascular stent graft in place. No free air. Severe left renal atrophy. For management of fusiform aneurysmal abdominal aortas: <2.6 cm aorta, no follow-up is recommended. 2.6-2.9 cm aorta, recommend follow-up every 5 years for aortas meeting the criteria for AAA (>1.5 x proximal normal segment; no f/u if < 1.5 x proximal normal segment; no f/u for aortas < 2.6 cm). 3.0-3.4 cm AAA, recommend follow-up every 3 years. 3.5-3.9 cm AAA, recommend follow-up every 2 years. 4.0-4.4 cm AAA, recommend follow-up every 12 months and recommend vascular consultation. 4.5-5.4 cm AAA, recommend follow-up every 6 months and recommend vascular consultation. >5.5 cm AAA, recommend referral to vascular specialist. For management of saccular abdominal aortic aneurysms of any size, recommend vascular consultation. Note: for AAA enlargement of >0.5 cm in 6 months or >1 cm in 1 year, recommend vascular consultation. References: J Am Donald Radiol 2013; 10(10):789-794; J Vasc Surg. 2018; 67:2-77 TECHNICAL DOCUMENTATION: Quality ID # 436: Final reports with documentation of one or more dose reduction techniques (e.g., Automated exposure control, adjustment of the mA and/or kV according to patient size, use of iterative reconstruction technique) copyright 2011 [employer]- All Rights Reserved KUB X-Ray 09/12/19 09:57 IMPRESSION: NO RADIOGRAPHIC EVIDENCE FOR ACUTE ABDOMINAL DISEASE. Assessment & Plan - Diagnosis (1) Small bowel obstruction due to adhesions Is this a current diagnosis for this admission?: Yes Plan: Status post lysis of adhesions. Still has an ileus. Keep NG tube. Continue IV fluids and encourage ambulation. Replace potassium. - Time Time Spent with patient: Less than 15 minutes
[2019-09-13] MEDS: MORPHINE SULFATE 10 MG/ML INJ IV PRN ×3 (09:06→20:56)
[2019-09-13] MEDS: POTASSI CL 20 MEQ/D5-1/2NS 1L 1000 ML IV PRN (14:40)
[2019-09-14] MEDS: METOPROLOL TARTRATE PF/INJ 5 MG/5 ML SDV IV SCH ×3 (01:08→17:31)
[2019-09-14] MEDS: CLINDAMYCIN 600 MG/D5W RTU 600 MG/50 ML RTUPB IV SCH ×3 (01:08→17:31)
[2019-09-14] MEDS: MORPHINE SULFATE 10 MG/ML INJ IV PRN ×3 (03:19→22:24)
[2019-09-14] MEDS: POTASSI CL 20 MEQ/D5-1/2NS 1L 1000 ML IV PRN ×2 (05:24→17:30)
[2019-09-14 05:55] LABS: ANION GAP 9 (5-19); BLOOD UREA NITROGEN 10 mg/dL (7-20); CALCIUM 8.8 mg/dL (8.4-10.2); CARBON DIOXIDE 27 mmol/L (22-30); CHLORIDE 99 mmol/L (98-107); GLUCOSE 103 mg/dL (75-110); POTASSIUM 3.4 mmol/L (3.6-5.0)
[2019-09-14 07:13] LABS: HEMATOCRIT 31.7 % (36.0-47.0); HEMOGLOBIN 10.7 g/dL (12.0-15.5); MEAN CORPUSCULAR HEMOGLOBIN 27.9 pg (27.0-33.4); MEAN CORPUSCULAR HGB CONC 33.7 g/dL (32.0-36.0); MEAN CORPUSCULAR VOLUME 83 fl (80-97); RED BLOOD COUNT 3.83 10^6/uL (3.72-5.28); RED CELL DISTRIBUTION WIDTH 14.4 % (11.5-14.0)
[2019-09-14 07:17] LABS: PLATELET COUNT 99 10^3/uL (150-450); WHITE BLOOD COUNT 18.6 10^3/uL (4.0-10.5)
[2019-09-14 07:19] LABS: ABSOLUTE LYMPHOCYTES# (MANUAL) 0.7 10^3/uL (0.5-4.7); ABSOLUTE MONOCYTES # (MANUAL) 0.4 10^3/uL (0.1-1.4); BAND NEUTROPHILS % (MANUAL) 4 % (3-5); BASOPHILS % (MANUAL) 0 % (0-2); EOSINOPHILS % (MANUAL) 2 % (0-6); LYMPHOCYTES % (MANUAL) 3 % (13-45); METAMYELOCYTES % (MANUAL) 1 % (0-1); MONOCYTES % (MANUAL) 2 % (3-13); SEGMENTED NEUTROPHILS % (MAN) 86 % (42-78); TOTAL CELLS COUNTED 100
[2019-09-14 07:20] LABS: POLYCHROMASIA SLIGHT
[2019-09-14 07:21] LABS: ANISOCYTOSIS SLIGHT; OVALOCYTES 1+; POIKILOCYTOSIS SLIGHT
[2019-09-14 07:23] LABS: MYELOCYTES % (MANUAL) 1 % (0); PLATELET COMMENT DECREASED
--- NOTE | 2019-09-14 09:17 | PDOC PROGRESS REPORT ---
Subjective Progress Note for:: 09/14/19 Subjective:: no complaints still no flatus via stoma Reason For Visit: SMALL BOWEL OBSTRUCTION Physical Exam Vital Signs: Temp Pulse Resp BP Pulse Ox 98.4 F 74 17 134/60 H 95 09/14/19 08:36 09/14/19 08:36 09/14/19 08:36 09/14/19 08:36 09/14/19 08:36 Intake & Output 09/13/19 09/14/19 09/15/19 06:59 06:59 06:59 Intake Total 3058 2300 Output Total 575 1150 Balance 2483 1150 Weight 55.2 kg 48.5 kg General appearance: PRESENT: mild distress Head exam: PRESENT: normocephalic Eye exam: PRESENT: EOMI Ear exam: PRESENT: normal external ear exam Mouth exam: PRESENT: moist Neck exam: PRESENT: full ROM Respiratory exam: PRESENT: clear to auscultation josefina Cardiovascular exam: PRESENT: RRR Pulses: PRESENT: normal radial pulses, normal femoral pulses Vascular exam: PRESENT: normal capillary refill GI/Abdominal exam: PRESENT: hypoactive bowel sounds, soft Rectal exam: PRESENT: deferred Extremities exam: PRESENT: full ROM Musculoskeletal exam: PRESENT: full ROM Neurological exam: PRESENT: alert, awake, oriented to person, oriented to place Psychiatric exam: PRESENT: appropriate affect Skin exam: PRESENT: dry Results Laboratory Results: 09/14/19 04:49 09/14/19 04:49 09/14/19 09/14/19 04:49 04:49 WBC 18.6 H D RBC 3.83 Hgb 10.7 L Hct 31.7 L MCV 83 MCH 27.9 MCHC 33.7 RDW 14.4 H Plt Count 99 L Seg Neutrophils % Not Reportable Sodium 134.7 L Potassium 3.4 L Chloride 99 Carbon Dioxide 27 Anion Gap 9 BUN 10 Creatinine 0.84 Est GFR ( Amer) > 60 Glucose 103 Calcium 8.8 09/06/19 17:25 Troponin I 0.024 Impressions: Chest X-Ray 09/06/19 20:30 IMPRESSION: No acute cardiopulmonary process copyright 2011 [employer]- All Rights Reserved Head CT 09/06/19 20:30 IMPRESSION: 1. No hemorrhage or mass lesion. 2. Age-related volume loss with nonspecific white matter changes suggestive of small vessel ischemic disease. Abdomen/Pelvis CT 09/06/19 20:31 IMPRESSION: Small bowel obstruction, as above with probable transition point associated with a hernia of the anterior left hemipelvis abdominal or pelvic wall. Small amount of free fluid. No free air. Relative decompression of colon. Aneurysmal dilatation of the abdominal aorta measuring 5.7 x 5.7 cm. Recommend follow-up as per below. Post surgical changes with endovascular stent graft in place. No free air. Severe left renal atrophy. For management of fusiform aneurysmal abdominal aortas: <2.6 cm aorta, no follow-up is recommended. 2.6-2.9 cm aorta, recommend follow-up every 5 years for aortas meeting the criteria for AAA (>1.5 x proximal normal segment; no f/u if < 1.5 x proximal normal segment; no f/u for aortas < 2.6 cm). 3.0-3.4 cm AAA, recommend follow-up every 3 years. 3.5-3.9 cm AAA, recommend follow-up every 2 years. 4.0-4.4 cm AAA, recommend follow-up every 12 months and recommend vascular consultation. 4.5-5.4 cm AAA, recommend follow-up every 6 months and recommend vascular consultation. >5.5 cm AAA, recommend referral to vascular specialist. For management of saccular abdominal aortic aneurysms of any size, recommend vascular consultation. Note: for AAA enlargement of >0.5 cm in 6 months or >1 cm in 1 year, recommend vascular consultation. References: J Am Donald Radiol 2013; 10(10):789-794; J Vasc Surg. 2018; 67:2-77 TECHNICAL DOCUMENTATION: Quality ID # 436: Final reports with documentation of one or more dose reduction techniques (e.g., Automated exposure control, adjustment of the mA and/or kV according to patient size, use of iterative reconstruction technique) copyright 2011 [employer]- All Rights Reserved Assessment & Plan - Diagnosis (1) Bowel obstruction Qualifiers: Intestinal obstruction type: unspecified Intestinal obstruction extent: unspecified extent Qualified Code(s): K56.609 - Unspecified intestinal obstruction, unspecified as to partial versus complete obstruction Is this a current diagnosis for this admission?: Yes - Time Time Spent with patient: 25-34 minutes - Plan Summary Plan Summary: s/p lysis of adhesions still with ileus kub yesterday showed dilated sb iwth decompressed colon this am abd soft with hypoactive bs. ng in place, bilous plan check kub today, cont ng if sb less dilated will order sbft.
--- NOTE | 2019-09-14 09:23 | Progress Note ---
Provider Note Provider Note: Review of patient's KUB this morning shows air in the colon and no significant small bowel dilatation. We will order a small bowel series today as she has not had any flatus or return of bowel function since her procedure.
--- NOTE | 2019-09-14 10:18 | RADIOLOGY REPORT (SQ) ---
EXAM DESCRIPTION: KUB/ABDOMEN (SINGLE VIEW) COMPLETED DATE/TIME: 09/14/2019 9:01 am REASON FOR STUDY: SBO COMPARISON: AP view of the abdomen from 09/04/2019. NUMBER OF VIEWS: One view. TECHNIQUE: Supine radiographic image of the abdomen acquired. LIMITATIONS: None. FINDINGS: BOWEL GAS PATTERN: No dilated loops of bowel. CALCIFICATIONS: No calcifications. SOFT TISSUES: Aortoiliac endovascular stent grafts with stents in the celiac, SMA and renal arteries. HARDWARE: Left DEVYN hardware. BONES: No acute findings. OTHER: No other finding. IMPRESSION: Nonobstructive bowel gas pattern. TECHNICAL DOCUMENTATION: JOB ID: [id number] [employer]- All Rights Reserved Reading location - IP/workstation name: [email or web address]
[2019-09-14 14:32] LABS: PATH REVIEW PATHOLOGIST REVIEWED
--- NOTE | 2019-09-14 15:21 | RADIOLOGY REPORT (SQ) ---
EXAM DESCRIPTION: SMALL BOWEL SERIES COMPLETED DATE/TIME: 09/14/2019 2:44 pm REASON FOR STUDY: r/o sbo COMPARISON: CT abdomen pelvis 09/06/2019 Abdominal films 10/08/2019, 09/09/2019, 09/12/2019, 09/14/2019 FLUOROSCOPY TIME: No fluoroscopy 9 KUB images saved to PACS. LIMITATIONS: None. PROCEDURE: Initial construction supervisor image of abdomen acquired, followed by administration of half strength Onesimo rografin oral contrast. Serial radiographic images acquired. Fluoroscopic images recorded of the te rminal ileum and other indicated areas. All images stored on PACS. 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 Prompt gastric emptying. Air in nondistende d loops of colon. Extensive thoracic and abdominal aortic stent grafting with visceral artery stents and left lower quadrant ostomy. STOMACH: No significant reflux. Normal distention without abnormality. DUODENUM: Normal mucosal pattern with adequate distention. No displacement or obstruction. JEJUNUM: Normal mucosal pattern. No dilatation, segmentation, strictures or masses. ILEUM: Normal mucosal pattern. No dilatation, segmentation, strictures or masses. TERMINAL ILEUM AND ILEO-CECAL VALVE: Normal mucosal pattern without "cobble-stoning" or stricture. N ormal compression. PROXIMAL COLON: Incompletely imaged. No abnormality. OTHER: By 30 minutes, dilute Gastrografin was seen in the ascending and transverse colon. IMPRESSION: No evidence of small-bowel obstruction. By 30 minutes, half strength Gastrografin oral contrast was seen in the ascending and transverse colon. COMMENT: Quality ID 145: Final reports for procedures using fluoroscopy that document radiation exp osure indices, or exposure time and number of fluorographic images (if radiation exposure indices are not available) TECHNICAL DOCUMENTATION: JOB ID: [id number] [employer]- All Rights Reserved Reading location - IP/workstation name: [email or web address]
[2019-09-14] MEDS: ONDANSETRON HCL INJ/PF 4 MG/2 ML SDV IV PRN ×2 (16:57→22:24)
[2019-09-15] MEDS: METOPROLOL TARTRATE PF/INJ 5 MG/5 ML SDV IV SCH ×3 (01:14→17:47)
[2019-09-15] MEDS: CLINDAMYCIN 600 MG/D5W RTU 600 MG/50 ML RTUPB IV SCH ×3 (01:14→17:47)
[2019-09-15] MEDS ORDERED: NORMAL SALINE 1000 ML 1,000 ML IV ONE (01:30)
[2019-09-15] MEDS: MORPHINE SULFATE 10 MG/ML INJ IV PRN ×2 (03:48→15:06)
[2019-09-15] MEDS: POTASSI CL 20 MEQ/D5-1/2NS 1L 1000 ML IV PRN ×2 (06:31→17:49)
--- NOTE | 2019-09-15 09:41 | PDOC PROGRESS REPORT ---
Subjective Progress Note for:: 09/15/19 Subjective:: Patient had nasogastric tube removed after return of bowel function as demonstrated by significant colostomy output. This morning she is very sleepy but arouses. She is disoriented Reason For Visit: SMALL BOWEL OBSTRUCTION Physical Exam Vital Signs: Temp Pulse Resp BP Pulse Ox 98.8 F 69 16 119/46 L 94 09/14/19 23:03 09/15/19 02:01 09/14/19 23:03 09/15/19 02:01 09/14/19 23:03 Intake & Output 09/14/19 09/15/19 09/16/19 06:59 06:59 06:59 Intake Total 2300 3360 Output Total 1150 3200 Balance 1150 160 Weight 48.5 kg 50.2 kg General appearance: PRESENT: no acute distress, other - Required stimulation for arousal GI/Abdominal exam: PRESENT: other - Abdomen examined. Original dressing removed. There is some erythema to the skin. No active drainage. Significant colostomy output. Results Laboratory Results: 09/14/19 04:49 09/14/19 04:49 09/06/19 17:25 Troponin I 0.024 Impressions: Chest X-Ray 09/06/19 20:30 IMPRESSION: No acute cardiopulmonary process copyright 2011 [employer]- All Rights Reserved Head CT 09/06/19 20:30 IMPRESSION: 1. No hemorrhage or mass lesion. 2. Age-related volume loss with nonspecific white matter changes suggestive of small vessel ischemic disease. Abdomen/Pelvis CT 09/06/19 20:31 IMPRESSION: Small bowel obstruction, as above with probable transition point associated with a hernia of the anterior left hemipelvis abdominal or pelvic wall. Small amount of free fluid. No free air. Relative decompression of colon. Aneurysmal dilatation of the abdominal aorta measuring 5.7 x 5.7 cm. Recommend follow-up as per below. Post surgical changes with endovascular stent graft in place. No free air. Severe left renal atrophy. For management of fusiform aneurysmal abdominal aortas: <2.6 cm aorta, no follow-up is recommended. 2.6-2.9 cm aorta, recommend follow-up every 5 years for aortas meeting the criteria for AAA (>1.5 x proximal normal segment; no f/u if < 1.5 x proximal normal segment; no f/u for aortas < 2.6 cm). 3.0-3.4 cm AAA, recommend follow-up every 3 years. 3.5-3.9 cm AAA, recommend follow-up every 2 years. 4.0-4.4 cm AAA, recommend follow-up every 12 months and recommend vascular consultation. 4.5-5.4 cm AAA, recommend follow-up every 6 months and recommend vascular consultation. >5.5 cm AAA, recommend referral to vascular specialist. For management of saccular abdominal aortic aneurysms of any size, recommend vascular consultation. Note: for AAA enlargement of >0.5 cm in 6 months or >1 cm in 1 year, recommend vascular consultation. References: J Am Donald Radiol 2013; 10(10):789-794; J Vasc Surg. 2018; 67:2-77 TECHNICAL DOCUMENTATION: Quality ID # 436: Final reports with documentation of one or more dose reduction techniques (e.g., Automated exposure control, adjustment of the mA and/or kV according to patient size, use of iterative reconstruction technique) copyright 2011 [employer]- All Rights Reserved Small Bowel X-Ray 09/14/19 00:00 IMPRESSION: No evidence of small-bowel obstruction. By 30 minutes, half strength Gastrografin oral contrast was seen in the ascending and transverse colon. KUB X-Ray 09/14/19 07:00 IMPRESSION: Nonobstructive bowel gas pattern. Assessment & Plan - Diagnosis (1) Small bowel obstruction due to adhesions Is this a current diagnosis for this admission?: Yes Plan: Impression: Patient is 5 days status post exploratory laparotomy, lysis of adhesions for small bowel disruption, now with return of bowel function. Erythema around closed, stapled operative incision; patient had leukocytosis of 18,000 yesterday Recommendations: 1. Patient remains on clindamycin postoperatively 2. We will get physical therapy consulted, working with patient; she is a full code; patient's son at bedside dissipating patient coming home other than half-way facility 3. We will recheck white blood cell count; patient may have an evolving wound infection, and may require. - Time Time Spent with patient: 15-24 minutes Medications reviewed and adjusted accordingly: Yes Anticipated discharge: Home
[2019-09-15 11:08] LABS: HEMATOCRIT 29.9 % (36.0-47.0); HEMOGLOBIN 10.1 g/dL (12.0-15.5); MEAN CORPUSCULAR HEMOGLOBIN 27.9 pg (27.0-33.4); MEAN CORPUSCULAR HGB CONC 33.7 g/dL (32.0-36.0); MEAN CORPUSCULAR VOLUME 83 fl (80-97); PLATELET COUNT 108 10^3/uL (150-450); RED BLOOD COUNT 3.61 10^6/uL (3.72-5.28); RED CELL DISTRIBUTION WIDTH 14.4 % (11.5-14.0); WHITE BLOOD COUNT 16.3 10^3/uL (4.0-10.5)
[2019-09-15 11:31] LABS: ABSOLUTE LYMPHOCYTES# (MANUAL) 0.5 10^3/uL (0.5-4.7); ABSOLUTE MONOCYTES # (MANUAL) 0.8 10^3/uL (0.1-1.4); BASOPHILS % (MANUAL) 0 % (0-2); EOSINOPHILS % (MANUAL) 1 % (0-6); LYMPHOCYTES % (MANUAL) 3 % (13-45); MONOCYTES % (MANUAL) 5 % (3-13); SEGMENTED NEUTROPHILS % (MAN) 91 % (42-78); TOTAL CELLS COUNTED 100
[2019-09-15 11:32] LABS: ANISOCYTOSIS SLIGHT; PLATELET COMMENT DECREASED; PLATELET LARGE PRESENT
[2019-09-16] MEDS: CLINDAMYCIN 600 MG/D5W RTU 600 MG/50 ML RTUPB IV SCH ×3 (01:58→17:04)
[2019-09-16] MEDS: METOPROLOL TARTRATE PF/INJ 5 MG/5 ML SDV IV SCH ×3 (01:59→17:07)
--- NOTE | 2019-09-16 09:28 | PDOC PROGRESS REPORT ---
Subjective Progress Note for:: 09/16/19 Reason For Visit: SMALL BOWEL OBSTRUCTION Patient did get up with physical therapy, and is transferred from bed to commode bedside several occasions. She is weak. She is taking p.o. Colostomy bag still putting out. Physical Exam Vital Signs: Temp Pulse Resp BP Pulse Ox 98.1 F 69 14 148/52 H 97 09/16/19 08:09 09/16/19 08:09 09/16/19 08:09 09/16/19 08:09 09/16/19 08:09 Intake & Output 09/15/19 09/16/19 09/17/19 06:59 06:59 06:59 Intake Total 3360 1150 Output Total 3200 775 Balance 160 375 Weight 50.2 kg 52.1 kg General appearance: PRESENT: no acute distress, other - Patient more awake alert still confused but pleasant GI/Abdominal exam: PRESENT: other - Abdomen is soft, nontender; soleadd still in place and ostomy with gas and stool. Erythema slightly less prominent in abdominal wall; unable to express any pus Results Laboratory Results: 09/15/19 10:29 09/14/19 04:49 09/15/19 10:29 WBC 16.3 H RBC 3.61 L Hgb 10.1 L Hct 29.9 L MCV 83 MCH 27.9 MCHC 33.7 RDW 14.4 H Plt Count 108 L Seg Neutrophils % Not Reportable 09/06/19 17:25 Troponin I 0.024 Impressions: Chest X-Ray 09/06/19 20:30 IMPRESSION: No acute cardiopulmonary process copyright 2011 [employer]- All Rights Reserved Head CT 09/06/19 20:30 IMPRESSION: 1. No hemorrhage or mass lesion. 2. Age-related volume loss with nonspecific white matter changes suggestive of small vessel ischemic disease. Abdomen/Pelvis CT 09/06/19 20:31 IMPRESSION: Small bowel obstruction, as above with probable transition point associated with a hernia of the anterior left hemipelvis abdominal or pelvic wall. Small amount of free fluid. No free air. Relative decompression of colon. Aneurysmal dilatation of the abdominal aorta measuring 5.7 x 5.7 cm. Recommend follow-up as per below. Post surgical changes with endovascular stent graft in place. No free air. Severe left renal atrophy. For management of fusiform aneurysmal abdominal aortas: <2.6 cm aorta, no follow-up is recommended. 2.6-2.9 cm aorta, recommend follow-up every 5 years for aortas meeting the criteria for AAA (>1.5 x proximal normal segment; no f/u if < 1.5 x proximal normal segment; no f/u for aortas < 2.6 cm). 3.0-3.4 cm AAA, recommend follow-up every 3 years. 3.5-3.9 cm AAA, recommend follow-up every 2 years. 4.0-4.4 cm AAA, recommend follow-up every 12 months and recommend vascular consultation. 4.5-5.4 cm AAA, recommend follow-up every 6 months and recommend vascular consultation. >5.5 cm AAA, recommend referral to vascular specialist. For management of saccular abdominal aortic aneurysms of any size, recommend vascular consultation. Note: for AAA enlargement of >0.5 cm in 6 months or >1 cm in 1 year, recommend vascular consultation. References: J Am Donald Radiol 2013; 10(10):789-794; J Vasc Surg. 2018; 67:2-77 TECHNICAL DOCUMENTATION: Quality ID # 436: Final reports with documentation of one or more dose reduction techniques (e.g., Automated exposure control, adjustment of the mA and/or kV according to patient size, use of iterative reconstruction technique) copyright 2011 [employer]- All Rights Reserved Small Bowel X-Ray 09/14/19 00:00 IMPRESSION: No evidence of small-bowel obstruction. By 30 minutes, half strength Gastrografin oral contrast was seen in the ascending and transverse colon. KUB X-Ray 09/14/19 07:00 IMPRESSION: Nonobstructive bowel gas pattern. Assessment & Plan - Diagnosis (1) Small bowel obstruction due to adhesions Is this a current diagnosis for this admission?: Yes Plan: Impression: Making slow steady progress with a increase physical activity, p.o. intake and successful ostomy output. White blood cell count down slightly yesterday. Abdominal wall erythema stable Recommendations: 1. Continue IV support, physical activity; will add Ensure 2. Continue to monitor abdominal wall for cellulitis progression 3. Anticipate discharge home in the next 24 to 48 hours. - Time Time Spent with patient: 15-24 minutes Medications reviewed and adjusted accordingly: Yes Anticipated discharge: Home
[2019-09-16] MEDS: POTASSI CL 20 MEQ/D5-1/2NS 1L 1000 ML IV PRN (16:55)
[2019-09-17] MEDS: METOPROLOL TARTRATE PF/INJ 5 MG/5 ML SDV IV SCH ×2 (01:19→10:14)
[2019-09-17] MEDS: CLINDAMYCIN 600 MG/D5W RTU 600 MG/50 ML RTUPB IV SCH ×2 (01:19→09:35)
[2019-09-17] MEDS: MORPHINE SULFATE 10 MG/ML INJ IV PRN ×2 (09:34→14:02)
[2019-09-17] MEDS: POTASSI CL 20 MEQ/D5-1/2NS 1L 1000 ML IV PRN (09:36)
--- NOTE | 2019-09-17 14:02 | PDOC PROGRESS REPORT ---
Subjective Progress Note for:: 09/17/19 Subjective:: The patient appears to be weak with poor appetite Reason For Visit: SMALL BOWEL OBSTRUCTION Physical Exam Vital Signs: Temp Pulse Resp BP Pulse Ox 98.1 F 74 16 92/74 L 97 09/17/19 12:00 09/17/19 12:00 09/17/19 12:00 09/17/19 12:00 09/17/19 12:00 Intake & Output 09/16/19 09/17/19 09/18/19 06:59 06:59 06:59 Intake Total 2200 1747 240 Output Total 775 1100 200 Balance 1425 647 40 Weight 52.1 kg 53.2 kg General appearance: PRESENT: no acute distress, thin GI/Abdominal exam: PRESENT: hypoactive bowel sounds, soft, other - Left side colostomy = working with gas and stools Midline abdominal incision = erythema of the edges with soledad in place Results Laboratory Results: 09/15/19 10:29 09/14/19 04:49 09/06/19 17:25 Troponin I 0.024 Impressions: Chest X-Ray 09/06/19 20:30 IMPRESSION: No acute cardiopulmonary process copyright 2010 [employer]- All Rights Reserved Head CT 09/06/19 20:30 IMPRESSION: 1. No hemorrhage or mass lesion. 2. Age-related volume loss with nonspecific white matter changes suggestive of small vessel ischemic disease. Abdomen/Pelvis CT 09/06/19 20:31 IMPRESSION: Small bowel obstruction, as above with probable transition point associated with a hernia of the anterior left hemipelvis abdominal or pelvic wall. Small amount of free fluid. No free air. Relative decompression of colon. Aneurysmal dilatation of the abdominal aorta measuring 5.7 x 5.7 cm. Recommend follow-up as per below. Post surgical changes with endovascular stent graft in place. No free air. Severe left renal atrophy. For management of fusiform aneurysmal abdominal aortas: <2.6 cm aorta, no follow-up is recommended. 2.6-2.9 cm aorta, recommend follow-up every 5 years for aortas meeting the criteria for AAA (>1.5 x proximal normal segment; no f/u if < 1.5 x proximal normal segment; no f/u for aortas < 2.6 cm). 3.0-3.4 cm AAA, recommend follow-up every 3 years. 3.5-3.9 cm AAA, recommend follow-up every 2 years. 4.0-4.4 cm AAA, recommend follow-up every 12 months and recommend vascular consultation. 4.5-5.4 cm AAA, recommend follow-up every 6 months and recommend vascular consultation. >5.5 cm AAA, recommend referral to vascular specialist. For management of saccular abdominal aortic aneurysms of any size, recommend vascular consultation. Note: for AAA enlargement of >0.5 cm in 6 months or >1 cm in 1 year, recommend vascular consultation. References: J Am Donald Radiol 2013; 10(10):789-794; J Vasc Surg. 2018; 67:2-77 TECHNICAL DOCUMENTATION: Quality ID # 436: Final reports with documentation of one or more dose reduction techniques (e.g., Automated exposure control, adjustment of the mA and/or kV according to patient size, use of iterative reconstruction technique) copyright 2011 [employer]- All Rights Reserved Small Bowel X-Ray 09/14/19 00:00 IMPRESSION: No evidence of small-bowel obstruction. By 30 minutes, half strength Gastrografin oral contrast was seen in the ascending and transverse colon. KUB X-Ray 09/14/19 07:00 IMPRESSION: Nonobstructive bowel gas pattern. Assessment & Plan - Diagnosis (1) Surgical wound infection Is this a current diagnosis for this admission?: Yes (2) Abdominal pain Qualifiers: Abdominal location: epigastric Qualified Code(s): R10.13 - Epigastric pain Is this a current diagnosis for this admission?: Yes (3) Bowel obstruction Qualifiers: Intestinal obstruction type: unspecified Intestinal obstruction extent: unspecified extent Qualified Code(s): K56.609 - Unspecified intestinal obstruction, unspecified as to partial versus complete obstruction Is this a current diagnosis for this admission?: Yes (4) Small bowel obstruction due to adhesions Is this a current diagnosis for this admission?: Yes - Time Time Spent with patient: 35 or more minutes - Plan Summary Plan Summary: Assessment: Postoperative day #7 following exploratory laparotomy with lysis of adhesions Patient presents with poor appetite Leukocytosis as of September 15, 2019 (16,000) Bowel function present with gas and stools in the colostomy bag Physical exam of the abdomen shows a midline incision with erythema of the edges and drainage Plan: Open abdominal wound the bedside and obtain cultures Wound packed at bedside Twice daily packing over the abdominal wound starting tomorrow Change antibiotics: discontinue clindamycin Start Flagyl and Cipro IV until final cultures are available
--- NOTE | 2019-09-17 14:22 | Operative Report ---
Nonrecallable Operative Report DATE OF SURGERY: 09/17/19 PREOPERATIVE DIAGNOSIS: Laparotomy wound infection POSTOPERATIVE DIAGNOSIS: Same OPERATION: Drainage of laparotomy wound infection SURGEON: KIM BARNETT TISSUE REMOVED OR ALTERED: Large amount of pus removed from the midline laparotomy incision COMPLICATIONS: None ESTIMATED BLOOD LOSS: None INTRAOPERATIVE FINDINGS: Large amount of pus removed from the midline laparotomy incision PROCEDURE: The procedure was done at bedside, the midline incision was prepped with Betadine, all soledad were removed, the wound edges were spread with a sterile Q-tip, and a large amount of pus was obtained with foul smell. This was sent for Gram stain, aerobic, and anaerobic culture. The wound was then checked and the fascia was found to be intact. The wound bed was packed with Betadine soaked 4 x 4's sterile sponges and tape. The patient tolerated the procedure w ell.
[2019-09-17 14:56] LABS: ABSOLUTE EOSINOPHILS # (AUTO) 0.2 10^3/uL (0.0-0.6); ABSOLUTE LYMPHOCYTES (AUTO) 1.1 10^3/uL (0.5-4.7); ABSOLUTE MONOCYTES (AUTO) 0.9 10^3/uL (0.1-1.4); ABSOLUTE NEUT (AUTO) 9.9 10^3/uL (1.7-8.2); BASOPHILS % (AUTO) 0.2 % (0-2); EOSINOPHILS % (AUTO) 1.8 % (0-6); HEMATOCRIT 29.2 % (36.0-47.0); LYMPHOCYTES % (AUTO) 8.7 % (13-45); MEAN CORPUSCULAR HEMOGLOBIN 28.2 pg (27.0-33.4); MEAN CORPUSCULAR HGB CONC 34.3 g/dL (32.0-36.0); MEAN CORPUSCULAR VOLUME 82 fl (80-97); MONOCYTES % (AUTO) 7.7 % (3-13); PLATELET COUNT 185 10^3/uL (150-450); RED BLOOD COUNT 3.55 10^6/uL (3.72-5.28); RED CELL DISTRIBUTION WIDTH 14.2 % (11.5-14.0); SEGMENTED NEUTROPHILS % (AUTO) 81.6 % (42-78); TOTAL CELLS COUNTED % (AUTO) 100 %; WHITE BLOOD COUNT 12.1 10^3/uL (4.0-10.5)
[2019-09-17] MEDS ORDERED: METRONIDAZOLE 500 MG/NS RTU 500 MG/100 ML RTUPB IV SCH (15:00)
[2019-09-17] MEDS: CIPROFLOXACIN 400 MG/D5W RTU 400 MG/200 ML RTUPB IV SCH ×2 (16:29→21:12)
[2019-09-17] MEDS: LABETALOL HCL 200 MG TABLET PO SCH (21:12)
[2019-09-17] MEDS: METRONIDAZOLE 500 MG/NS RTU 500 MG/100 ML RTUPB IV SCH (21:12)
[2019-09-18] MEDS: METRONIDAZOLE 500 MG/NS RTU 500 MG/100 ML RTUPB IV SCH ×4 (03:17→21:39)
[2019-09-18 05:21] LABS: HEMATOCRIT 31.3 % (36.0-47.0); HEMOGLOBIN 10.6 g/dL (12.0-15.5); MEAN CORPUSCULAR HEMOGLOBIN 28.2 pg (27.0-33.4); MEAN CORPUSCULAR VOLUME 83 fl (80-97); PLATELET COUNT 198 10^3/uL (150-450); RED BLOOD COUNT 3.77 10^6/uL (3.72-5.28); RED CELL DISTRIBUTION WIDTH 14.4 % (11.5-14.0); WHITE BLOOD COUNT 10.1 10^3/uL (4.0-10.5)
[2019-09-18 05:43] LABS: ANION GAP 10 (5-19); BLOOD UREA NITROGEN 13 mg/dL (7-20); CALCIUM 9.1 mg/dL (8.4-10.2); CARBON DIOXIDE 26 mmol/L (22-30); CHLORIDE 101 mmol/L (98-107); GLUCOSE 97 mg/dL (75-110); POTASSIUM 3.8 mmol/L (3.6-5.0)
[2019-09-18 05:50] LABS: ABSOLUTE LYMPHOCYTES# (MANUAL) 1.1 10^3/uL (0.5-4.7); ABSOLUTE MONOCYTES # (MANUAL) 0.5 10^3/uL (0.1-1.4); BASOPHILS % (MANUAL) 0 % (0-2); EOSINOPHILS % (MANUAL) 1 % (0-6); LYMPHOCYTES % (MANUAL) 11 % (13-45); MONOCYTES % (MANUAL) 5 % (3-13); SEGMENTED NEUTROPHILS % (MAN) 83 % (42-78); TOTAL CELLS COUNTED 100
[2019-09-18 05:52] LABS: ANISOCYTOSIS SLIGHT; BURR CELLS SLIGHT; OVALOCYTES SLIGHT; PLATELET COMMENT ADEQUATE; POIKILOCYTOSIS SLIGHT; TOXIC GRANULATION 1+; TOXIC VACUOLATION PRESENT
[2019-09-18] MEDS: CIPROFLOXACIN 400 MG/D5W RTU 400 MG/200 ML RTUPB IV SCH ×2 (09:38→21:40)
--- NOTE | 2019-09-18 10:29 | PDOC PROGRESS REPORT ---
Subjective Progress Note for:: 09/18/19 Subjective:: Patient comfortable, doing well, good appetite, no complaints reported Reason For Visit: SMALL BOWEL OBSTRUCTION Physical Exam Vital Signs: Temp Pulse Resp BP Pulse Ox 98.2 F 93 16 103/73 97 09/18/19 09:29 09/18/19 09:29 09/18/19 09:29 09/18/19 09:29 09/18/19 09:29 Intake & Output 09/17/19 09/18/19 09/19/19 06:59 06:59 06:59 Intake Total 1747 990 Output Total 1100 750 Balance 647 240 Weight 53.2 kg 52.1 kg General appearance: PRESENT: no acute distress Respiratory exam: PRESENT: clear to auscultation josefina Cardiovascular exam: PRESENT: RRR GI/Abdominal exam: PRESENT: normal bowel sounds, soft, other - Ostomy pink, viable, with gas and stools in the bag; midline incision granulating, no odor, no drainage, fascia intact Results Laboratory Results: 09/18/19 04:21 09/18/19 04:21 09/17/19 09/18/19 09/18/19 14:35 04:21 04:21 WBC 12.1 H 10.1 RBC 3.55 L 3.77 Hgb 10.0 L 10.6 L Hct 29.2 L 31.3 L MCV 82 83 MCH 28.2 28.2 MCHC 34.3 34.0 RDW 14.2 H 14.4 H Plt Count 185 198 Seg Neutrophils % 81.6 H Not Reportable Sodium 136.8 L Potassium 3.8 Chloride 101 Carbon Dioxide 26 Anion Gap 10 BUN 13 Creatinine 0.93 Est GFR ( Amer) > 60 Glucose 97 Calcium 9.1 09/06/19 17:25 Troponin I 0.024 Impressions: Chest X-Ray 09/06/19 20:30 IMPRESSION: No acute cardiopulmonary process copyright 2011 [employer]- All Rights Reserved Head CT 09/06/19 20:30 IMPRESSION: 1. No hemorrhage or mass lesion. 2. Age-related volume loss with nonspecific white matter changes suggestive of small vessel ischemic disease. Abdomen/Pelvis CT 09/06/19 20:31 IMPRESSION: Small bowel obstruction, as above with probable transition point associated with a hernia of the anterior left hemipelvis abdominal or pelvic wall. Small amount of free fluid. No free air. Relative decompression of colon. Aneurysmal dilatation of the abdominal aorta measuring 5.7 x 5.7 cm. Recommend follow-up as per below. Post surgical changes with endovascular stent graft in place. No free air. Severe left renal atrophy. For management of fusiform aneurysmal abdominal aortas: <2.6 cm aorta, no follow-up is recommended. 2.6-2.9 cm aorta, recommend follow-up every 5 years for aortas meeting the criteria for AAA (>1.5 x proximal normal segment; no f/u if < 1.5 x proximal normal segment; no f/u for aortas < 2.6 cm). 3.0-3.4 cm AAA, recommend follow-up every 3 years. 3.5-3.9 cm AAA, recommend follow-up every 2 years. 4.0-4.4 cm AAA, recommend follow-up every 12 months and recommend vascular consultation. 4.5-5.4 cm AAA, recommend follow-up every 6 months and recommend vascular consultation. >5.5 cm AAA, recommend referral to vascular specialist. For management of saccular abdominal aortic aneurysms of any size, recommend vascular consultation. Note: for AAA enlargement of >0.5 cm in 6 months or >1 cm in 1 year, recommend vascular consultation. References: J Am Donald Radiol 2013; 10(10):789-794; J Vasc Surg. 2018; 67:2-77 TECHNICAL DOCUMENTATION: Quality ID # 436: Final reports with documentation of one or more dose reduction techniques (e.g., Automated exposure control, adjustment of the mA and/or kV according to patient size, use of iterative reconstruction technique) copyright 2011 [employer]- All Rights Reserved Small Bowel X-Ray 09/14/19 00:00 IMPRESSION: No evidence of small-bowel obstruction. By 30 minutes, half strength Gastrografin oral contrast was seen in the ascending and transverse colon. KUB X-Ray 09/14/19 07:00 IMPRESSION: Nonobstructive bowel gas pattern. Assessment & Plan - Diagnosis (1) Surgical wound infection Is this a current diagnosis for this admission?: Yes (2) Abdominal pain Qualifiers: Abdominal location: epigastric Qualified Code(s): R10.13 - Epigastric pain Is this a current diagnosis for this admission?: Yes (3) Bowel obstruction Qualifiers: Intestinal obstruction type: unspecified Intestinal obstruction extent: unspecified extent Qualified Code(s): K56.609 - Unspecified intestinal obstruction, unspecified as to partial versus complete obstruction Is this a current diagnosis for this admission?: Yes (4) Small bowel obstruction due to adhesions Is this a current diagnosis for this admission?: Yes - Time Time Spent with patient: 25-34 minutes - Plan Summary Plan Summary: Assessment: Postoperative day #8 following laparotomy and lysis of adhesions Postoperative day #1 following laparotomy wound drainage Gram stain of laparotomy wound significant for gram-negative rods, culture still pending Patient general condition is improved Patient presents with good appetite Bowel function recovered Plan: Continue IV antibiotics Levaquin Flagyl Hep-Lock IV fluids Continue twice a day dressing changes of abdominal wound with wet-to-dry normal saline technique Patient can be discharged to home in the next 24 to 48 hours once the nominal wound final cultures are available
[2019-09-18] MEDS ORDERED: ACETAMINOPHEN 325 MG TABLET PO PRN (11:49)
[2019-09-18] MEDS: ACETAMINOPHEN 325 MG TABLET PO PRN ×2 (13:05→17:55)
[2019-09-18] MEDS: LABETALOL HCL 200 MG TABLET PO SCH ×2 (13:06→21:40)
[2019-09-18] MEDS ORDERED: KETOROLAC TROMETHAMINE INJ/PF 30 MG/1 ML SDV IV ONE (13:45)
--- NOTE | 2019-09-18 16:18 | PDOC CONSULTATION ---
Consultation Consult Date: 09/18/19 Provider Consulted: YOVANY CARLTON Consult reason:: Hypertension, tachycardia History of Present Illness Admission Date/PCP: 09/06/19 23:01 ANNE COVINGTON PA-C History of Present Illness: STEPHANIE MILLER is a 79 year old female who was admitted with a small bowel ob struction and who underwent a laparotomy with lysis of adhesions. She subsequently developed a wound infection and had that debrided surgically. She is on antibiotics awaiting cultures. Most of her blood pressure medications have been held except for her labetalol, and her blood pressure overall has been doing well. She had a lower blood pressure with a systolic of 103 this morning but has been asymptomatic. She also had a short run of some tachycardia with a heart rate around 120 overnight but that is since resolved as well. Our service was consulted for evaluation of these issues. 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 Colostomy. Social History Lives with: Family Smoking Status: Never Smoker Frequency of Alcohol Use: None Hx Recreational Drug Use: No Hx Prescription Drug Abuse: No - Advance Directive Resuscitation Status: Full Code Family History Family History: None, Reviewed & Not Pertinent Parental Family History Reviewed: Yes Children Family History Reviewed: Yes Sibling(s) Family History Reviewed.: Yes Medication/Allergy Home Medications: Solifenacin Succinate [Vesicare] 10 mg PO DAILY 06/20/13 Meclizine HCl [Antivert 25 mg Tablet] 25 mg PO BID 04/07/14 Atorvastatin Calcium [Lipitor 40 mg Tablet] 40 mg PO DAILY 06/22/14 Amlodipine Besylate [Norvasc 10 mg Tablet] 10 mg PO DAILY 09/07/19 Aspirin [Ecotrin 81 mg EC Tablet] 81 mg PO DAILY 09/07/19 Clonidine [Catapres-Tts 1 (0.1 mg/24 Hr) Transderm Patch] 1 patch TD .WEEKLY 09/07/19 Escitalopram Oxalate [Lexapro 10 mg Tablet] 10 mg PO DAILY 09/07/19 Gabapentin [Neurontin 300 mg Capsule] 300 mg PO Q12 09/07/19 Hydralazine HCl [Apresoline 25 mg Tablet] 25 mg PO BID 09/07/19 Labetalol HCl 100 mg PO BID 09/07/19 Mirabegron [Myrbetriq] 50 mg PO DAILY 09/07/19 Thiamine HCl [B-1] 100 mg PO DAILY 09/07/19 Allergies/Adverse Reactions: Penicillins Allergy (Verified 01/20/14 03:46) Review of Systems All systems: reviewed and no additional remarkable complaints except as stated - All systems were reviewed and were negative except as noted in the HPI Physical Exam Vital Signs: Temp Pulse Resp BP Pulse Ox 98.3 F 81 20 124/56 L 97 09/18/19 11:55 09/18/19 14:00 09/18/19 11:55 09/18/19 11:55 09/18/19 11:55 Intake & Output 09/17/19 09/18/19 09/19/19 06:59 06:59 06:59 Intake Total 1747 990 300 Output Total 1100 750 Balance 647 240 300 Weight 53.2 kg 52.1 kg General appearance: PRESENT: no acute distress, cooperative, disheveled, thin Head exam: PRESENT: atraumatic, normocephalic Eye exam: PRESENT: EOMI, PERRLA. ABSENT: conjunctival injection, nystagmus, scleral icterus Ear exam: PRESENT: normal external ear exam Mouth exam: PRESENT: moist, neck supple Teeth exam: PRESENT: poor dentation Throat exam: ABSENT: post pharyngeal erythema Neck exam: PRESENT: full ROM. ABSENT: carotid bruit, JVD, lymphadenopathy Respiratory exam: PRESENT: clear to auscultation josefina, symmetrical, unlabored. ABSENT: accessory muscle use, crackles, prolonged expiratory phas, rales, retraction, rhonchi, tachypnea, wheezes Cardiovascular exam: PRESENT: RRR, +S1, +S2 Pulses: PRESENT: normal carotid pulses Vascular exam: PRESENT: normal capillary refill GI/Abdominal exam: PRESENT: normal bowel sounds, soft, other - Left lower quadrant colostomy with stool in the bag, midline incision is covered with a sterile dressing with no surrounding erythema. ABSENT: distended, guarding, rebound, tenderness Extremities exam: ABSENT: clubbing, pedal edema Musculoskeletal exam: PRESENT: normal inspection. ABSENT: deformity Neurological exam: PRESENT: alert, awake, oriented to person, oriented to place, oriented to situation, CN II-XII grossly intact Psychiatric exam: PRESENT: appropriate affect, normal mood Skin exam: PRESENT: dry, warm Results Laboratory Results: 09/18/19 04:21 09/18/19 04:21 09/18/19 09/18/19 09/18/19 04:21 04:21 04:21 WBC 10.1 RBC 3.77 Hgb 10.6 L Hct 31.3 L MCV 83 MCH 28.2 MCHC 34.0 RDW 14.4 H Plt Count 198 Seg Neutrophils % Not Reportable Sodium 136.8 L Potassium 3.8 Chloride 101 Carbon Dioxide 26 Anion Gap 10 BUN 13 Creatinine 0.93 Est GFR ( Amer) > 60 Glucose 97 Calcium 9.1 Magnesium 1.6 09/06/19 17:25 Troponin I 0.024 Impressions: Chest X-Ray 09/06/19 20:30 IMPRESSION: No acute cardiopulmonary process copyright 2010 [email or web address]- All Rights Reserved Head CT 09/06/19 20:30 IMPRESSION: 1. No hemorrhage or mass lesion. 2. Age-related volume loss with nonspecific white matter changes suggestive of small vessel ischemic disease. Abdomen/Pelvis CT 09/06/19 20:31 IMPRESSION: Small bowel obstruction, as above with probable transition point associated with a hernia of the anterior left hemipelvis abdominal or pelvic wall. Small amount of free fluid. No free air. Relative decompression of colon. Aneurysmal dilatation of the abdominal aorta measuring 5.7 x 5.7 cm. Recommend follow-up as per below. Post surgical changes with endovascular stent graft in place. No free air. Severe left renal atrophy. For management of fusiform aneurysmal abdominal aortas: <2.6 cm aorta, no follow-up is recommended. 2.6-2.9 cm aorta, recommend follow-up every 5 years for aortas meeting the criteria for AAA (>1.5 x proximal normal segment; no f/u if < 1.5 x proximal normal segment; no f/u for aortas < 2.6 cm). 3.0-3.4 cm AAA, recommend follow-up every 3 years. 3.5-3.9 cm AAA, recommend follow-up every 2 years. 4.0-4.4 cm AAA, recommend follow-up every 12 months and recommend vascular consultation. 4.5-5.4 cm AAA, recommend follow-up every 6 months and recommend vascular consultation. >5.5 cm AAA, recommend referral to vascular specialist. For management of saccular abdominal aortic aneurysms of any size, recommend vascular consultation. Note: for AAA enlargement of >0.5 cm in 6 months or >1 cm in 1 year, recommend vascular consultation. References: J Am Donald Radiol 2013; 10(10):789-794; J Vasc Surg. 2018; 67:2-77 TECHNICAL DOCUMENTATION: Quality ID # 436: Final reports with documentation of one or more dose reduction techniques (e.g., Automated exposure control, adjustment of the mA and/or kV according to patient size, use of iterative reconstruction technique) copyright 2011 [email or web address]- All Rights Reserved Small Bowel X-Ray 09/14/19 00:00 IMPRESSION: No evidence of small-bowel obstruction. By 30 minutes, half strength Gastrografin oral contrast was seen in the ascending and transverse colon. KUB X-Ray 09/14/19 07:00 IMPRESSION: Nonobstructive bowel gas pattern. Assessment and Plan - Diagnosis (1) Hypertension Qualifiers: Hypertension type: essential hypertension Qualified Code(s): I10 - Essential (primary) hypertension Is this a current diagnosis for this admission?: Yes Plan: She is on multiple blood pressure medications at home with only one that has been continued has been labetalol, and for the most part her blood pressure control is been excellent. Her medication was continued today and she had one lower pressure this morning but her blood pressures have since recovered. I would continue her just on her labetalol for now and I will keep an eye on her blood pressures to see if any further additions of home medications need to be done. It was a single isolated lower reading and overall the trend her blood pressure has been excellent. (2) Tachycardia Is this a current diagnosis for this admission?: Yes Plan: This is resolved. She had an isolated elevation in her heart rate overnight to around 120 but it did not last very long. Her heart rate was once again in the 70s and 80s this morning without any intervention. We will continue her labetalol which is at the dose she takes at home. (3) Small bowel obstruction due to adhesions Is this a current diagnosis for this admission?: Yes Plan: Per surgery (4) Surgical wound infection Is this a current diagnosis for this admission?: Yes Plan: Per surgery - Time Time Spent with patient: 35 or more minutes
[2019-09-19] MEDS: METRONIDAZOLE 500 MG/NS RTU 500 MG/100 ML RTUPB IV SCH ×4 (03:44→22:02)
[2019-09-19] MEDS: ACETAMINOPHEN 325 MG TABLET PO PRN ×3 (08:51→22:02)
[2019-09-19 08:53] LABS: HEMOGLOBIN 9.7 g/dL (12.0-15.5); MEAN CORPUSCULAR HEMOGLOBIN 28.4 pg (27.0-33.4); MEAN CORPUSCULAR HGB CONC 34.5 g/dL (32.0-36.0); MEAN CORPUSCULAR VOLUME 82 fl (80-97); PLATELET COUNT 253 10^3/uL (150-450); RED CELL DISTRIBUTION WIDTH 14.5 % (11.5-14.0); WHITE BLOOD COUNT 7.2 10^3/uL (4.0-10.5)
[2019-09-19 09:18] LABS: ANION GAP 10 (5-19); BLOOD UREA NITROGEN 20 mg/dL (7-20); CALCIUM 8.9 mg/dL (8.4-10.2); CARBON DIOXIDE 26 mmol/L (22-30); CHLORIDE 102 mmol/L (98-107); GLUCOSE 89 mg/dL (75-110)
[2019-09-19] MEDS ORDERED: NORMAL SALINE 1000 ML 1,000 ML IV PRN (09:38)
--- NOTE | 2019-09-19 09:39 | PDOC PROGRESS REPORT ---
Subjective Reason For Visit: SMALL BOWEL OBSTRUCTION Physical Exam Vital Signs: Temp Pulse Resp BP Pulse Ox 97.2 F 64 16 126/62 H 100 09/19/19 08:18 09/19/19 08:18 09/19/19 08:18 09/19/19 08:18 09/19/19 08:18 Intake & Output 09/18/19 09/19/19 09/20/19 06:59 06:59 06:59 Intake Total 990 2371 Output Total 750 900 Balance 240 1471 Weight 52.1 kg 52 kg Results Laboratory Results: 09/19/19 07:20 09/18/19 09/19/19 09/19/19 04:21 07:20 07:20 Seg Neutrophils % Not Reportable Sodium 137.8 Potassium 4.0 Chloride 102 Carbon Dioxide 26 Anion Gap 10 BUN 20 Creatinine 1.27 H Est GFR ( Amer) 49 L Glucose 89 Calcium 8.9 Magnesium 1.6 09/06/19 17:25 Troponin I 0.024 Impressions: Chest X-Ray 09/06/19 20:30 IMPRESSION: No acute cardiopulmonary process copyright 2011 [employer]- All Rights Reserved Head CT 09/06/19 20:30 IMPRESSION: 1. No hemorrhage or mass lesion. 2. Age-related volume loss with nonspecific white matter changes suggestive of small vessel ischemic disease. Abdomen/Pelvis CT 09/06/19 20:31 IMPRESSION: Small bowel obstruction, as above with probable transition point associated with a hernia of the anterior left hemipelvis abdominal or pelvic wall. Small amount of free fluid. No free air. Relative decompression of colon. Aneurysmal dilatation of the abdominal aorta measuring 5.7 x 5.7 cm. Recommend follow-up as per below. Post surgical changes with endovascular stent graft in place. No free air. Severe left renal atrophy. For management of fusiform aneurysmal abdominal aortas: <2.6 cm aorta, no follow-up is recommended. 2.6-2.9 cm aorta, recommend follow-up every 5 years for aortas meeting the criteria for AAA (>1.5 x proximal normal segment; no f/u if < 1.5 x proximal normal segment; no f/u for aortas < 2.6 cm). 3.0-3.4 cm AAA, recommend follow-up every 3 years. 3.5-3.9 cm AAA, recommend follow-up every 2 years. 4.0-4.4 cm AAA, recommend follow-up every 12 months and recommend vascular consultation. 4.5-5.4 cm AAA, recommend follow-up every 6 months and recommend vascular consultation. >5.5 cm AAA, recommend referral to vascular specialist. For management of saccular abdominal aortic aneurysms of any size, recommend vascular consultation. Note: for AAA enlargement of >0.5 cm in 6 months or >1 cm in 1 year, recommend vascular consultation. References: J Am Donald Radiol 2013; 10(10):789-794; J Vasc Surg. 2018; 67:2-77 TECHNICAL DOCUMENTATION: Quality ID # 436: Final reports with documentation of one or more dose reduction techniques (e.g., Automated exposure control, adjustment of the mA and/or kV according to patient size, use of iterative reconstruction technique) copyright 2011 [employer]- All Rights Reserved Small Bowel X-Ray 09/14/19 00:00 IMPRESSION: No evidence of small-bowel obstruction. By 30 minutes, half strength Gastrografin oral contrast was seen in the ascending and transverse colon. KUB X-Ray 09/14/19 07:00 IMPRESSION: Nonobstructive bowel gas pattern. Assessment & Plan - Diagnosis (1) Small bowel obstruction due to adhesions Is this a current diagnosis for this admission?: Yes - Time Time Spent with patient: Less than 15 minutes - Plan Summary Plan Summary: This is an 79-year-old female status post exploratory laparotomy with lysis of adhesions for a small bowel obstruction. The patient has been taking full liquids. She does report some nausea, but denies vomiting. The patient has air and stool within her left lower quadrant colostomy bag. I have encouraged her to ambulate. I will continue to monitor her bowel function. Once her bowel function has normalized, her diet may be advanced. Restart IV fluids. Midline wound is improving. Continue with damp dressing changes twice daily. Continue with current therapy.
[2019-09-19] MEDS: CIPROFLOXACIN 400 MG/D5W RTU 400 MG/200 ML RTUPB IV SCH ×2 (09:51→22:02)
[2019-09-19] MEDS: LABETALOL HCL 200 MG TABLET PO SCH ×2 (09:51→22:03)
[2019-09-19 10:17] LABS: ABSOLUTE LYMPHOCYTES# (MANUAL) 0.6 10^3/uL (0.5-4.7); ABSOLUTE MONOCYTES # (MANUAL) 0.5 10^3/uL (0.1-1.4); BAND NEUTROPHILS % (MANUAL) 1 % (3-5); BASOPHILS % (MANUAL) 1 % (0-2); EOSINOPHILS % (MANUAL) 3 % (0-6); LYMPHOCYTES % (MANUAL) 9 % (13-45); METAMYELOCYTES % (MANUAL) 1 % (0-1); MONOCYTES % (MANUAL) 7 % (3-13); SEGMENTED NEUTROPHILS % (MAN) 78 % (42-78); TOTAL CELLS COUNTED 100
[2019-09-19 10:18] LABS: OVALOCYTES 1+; POIKILOCYTOSIS 1+; TOXIC GRANULATION 1+
[2019-09-19 10:19] LABS: ANISOCYTOSIS SLIGHT; HELMET CELLS SLIGHT; PLATELET COMMENT ADEQUATE
--- NOTE | 2019-09-19 18:13 | PDOC PROGRESS REPORT ---
Subjective Progress Note for:: 09/19/19 Subjective:: No adverse events overnight. Blood pressure and heart rate is been stable. Reason For Visit: SMALL BOWEL OBSTRUCTION Physical Exam Vital Signs: Temp Pulse Resp BP Pulse Ox 97.2 F 60 16 126/62 H 100 09/19/19 08:18 09/19/19 14:00 09/19/19 08:18 09/19/19 08:18 09/19/19 08:18 Intake & Output 09/18/19 09/19/19 09/20/19 06:59 06:59 06:59 Intake Total 990 2371 100 Output Total 750 900 Balance 240 1471 100 Weight 52.1 kg 52 kg General appearance: PRESENT: no acute distress, cooperative, disheveled, thin Respiratory exam: PRESENT: clear to auscultation josefina, symmetrical, unlabored. ABSENT: accessory muscle use, crackles, prolonged expiratory phas, rales, retraction, rhonchi, tachypnea, wheezes Cardiovascular exam: PRESENT: RRR, +S1, +S2 Pulses: PRESENT: normal carotid pulses Vascular exam: PRESENT: normal capillary refill GI/Abdominal exam: PRESENT: normal bowel sounds, soft, other - Left lower quadrant colostomy with stool in the bag, midline incision is covered with a rita rile dressing with no surrounding erythema. ABSENT: distended, guarding, rebound, tenderness Extremities exam: ABSENT: clubbing, pedal edema Musculoskeletal exam: PRESENT: normal inspection. ABSENT: deformity Neurological exam: PRESENT: alert, awake, oriented to person, oriented to place, oriented to situation Results Laboratory Results: 09/19/19 07:20 09/19/19 07:20 09/19/19 09/19/19 07:20 07:20 WBC 7.2 RBC 3.40 L Hgb 9.7 L Hct 28.0 L MCV 82 MCH 28.4 MCHC 34.5 RDW 14.5 H Plt Count 253 Seg Neutrophils % Not Reportable Sodium 137.8 Potassium 4.0 Chloride 102 Carbon Dioxide 26 Anion Gap 10 BUN 20 Creatinine 1.27 H Est GFR ( Amer) 49 L Glucose 89 Calcium 8.9 09/17/19 15:30 Suprapubic Wound Gram Stain - Final 09/06/19 17:25 Troponin I 0.024 Impressions: Chest X-Ray 09/06/19 20:30 IMPRESSION: No acute cardiopulmonary process copyright 2011 [employer]- All Rights Reserved Head CT 09/06/19 20:30 IMPRESSION: 1. No hemorrhage or mass lesion. 2. Age-related volume loss with nonspecific white matter changes suggestive of small vessel ischemic disease. Abdomen/Pelvis CT 09/06/19 20:31 IMPRESSION: Small bowel obstruction, as above with probable transition point associated with a hernia of the anterior left hemipelvis abdominal or pelvic wall. Small amount of free fluid. No free air. Relative decompression of colon. Aneurysmal dilatation of the abdominal aorta measuring 5.7 x 5.7 cm. Recommend follow-up as per below. Post surgical changes with endovascular stent graft in place. No free air. Severe left renal atrophy. For management of fusiform aneurysmal abdominal aortas: <2.6 cm aorta, no follow-up is recommended. 2.6-2.9 cm aorta, recommend follow-up every 5 years for aortas meeting the criteria for AAA (>1.5 x proximal normal segment; no f/u if < 1.5 x proximal normal segment; no f/u for aortas < 2.6 cm). 3.0-3.4 cm AAA, recommend follow-up every 3 years. 3.5-3.9 cm AAA, recommend follow-up every 2 years. 4.0-4.4 cm AAA, recommend follow-up every 12 months and recommend vascular consultation. 4.5-5.4 cm AAA, recommend follow-up every 6 months and recommend vascular consultation. >5.5 cm AAA, recommend referral to vascular specialist. For management of saccular abdominal aortic aneurysms of any size, recommend vascular consultation. Note: for AAA enlargement of >0.5 cm in 6 months or >1 cm in 1 year, recommend vascular consultation. References: J Am Donald Radiol 2013; 10(10):789-794; J Vasc Surg. 2018; 67:2-77 TECHNICAL DOCUMENTATION: Quality ID # [id number]: Final reports with documentation of one or more dose reduction techniques (e.g., Automated exposure control, adjustment of the mA and/or kV according to patient size, use of iterative reconstruction technique) copyright 2010 [employer]- All Rights Reserved Small Bowel X-Ray 09/14/19 00:00 IMPRESSION: No evidence of small-bowel obstruction. By 30 minutes, half strength Gastrografin oral contrast was seen in the ascending and transverse colon. KUB X-Ray 09/14/19 07:00 IMPRESSION: Nonobstructive bowel gas pattern. Assessment and Plan - Diagnosis (1) Hypertension Qualifiers: Hypertension type: essential hypertension Qualified Code(s): I10 - Essential (primary) hypertension Is this a current diagnosis for this admission?: Yes Plan: Well-controlled with labetalol alone would continue that for now and would not resume her other home medications at this time (2) Tachycardia Is this a current diagnosis for this admission?: Yes Plan: Resolved (3) Small bowel obstruction due to adhesions Is this a current diagnosis for this admission?: Yes Plan: Per surgery (4) Surgical wound infection Is this a current diagnosis for this admission?: Yes Plan: Per surgery - Time Time Spent with patient: 15-24 minutes
[2019-09-20] MEDS: METRONIDAZOLE 500 MG/NS RTU 500 MG/100 ML RTUPB IV SCH (04:03)
[2019-09-20 07:21] LABS: HEMATOCRIT 27.9 % (36.0-47.0); HEMOGLOBIN 9.5 g/dL (12.0-15.5); MEAN CORPUSCULAR HEMOGLOBIN 28.1 pg (27.0-33.4); MEAN CORPUSCULAR VOLUME 83 fl (80-97); RED BLOOD COUNT 3.37 10^6/uL (3.72-5.28); RED CELL DISTRIBUTION WIDTH 14.4 % (11.5-14.0); WHITE BLOOD COUNT 6.1 10^3/uL (4.0-10.5)
[2019-09-20 07:30] LABS: ANION GAP 9 (5-19); BLOOD UREA NITROGEN 14 mg/dL (7-20); CALCIUM 9.1 mg/dL (8.4-10.2); CARBON DIOXIDE 24 mmol/L (22-30); CHLORIDE 106 mmol/L (98-107); GLUCOSE 87 mg/dL (75-110); POTASSIUM 4.6 mmol/L (3.6-5.0)
[2019-09-20] MEDS: ACETAMINOPHEN 325 MG TABLET PO PRN ×2 (07:36→15:35)
--- NOTE | 2019-09-20 08:38 | PDOC PROGRESS REPORT ---
Subjective Progress Note for:: 09/20/19 Subjective:: Patient comfortable, no complaints, reports drinking well and tolerating p.o. well Reason For Visit: SMALL BOWEL OBSTRUCTION Physical Exam Vital Signs: Temp Pulse Resp BP Pulse Ox 97.8 F 61 16 144/61 H 95 09/20/19 00:21 09/20/19 02:00 09/20/19 00:21 09/20/19 00:21 09/20/19 00:21 Intake & Output 09/19/19 09/20/19 09/21/19 06:59 06:59 06:59 Intake Total 2371 1660 Output Total 900 1300 Balance 1471 360 Weight 52 kg 52 kg General appearance: PRESENT: no acute distress, thin Respiratory exam: PRESENT: clear to auscultation josefina Cardiovascular exam: PRESENT: RRR GI/Abdominal exam: PRESENT: soft, other - Incision granulating, pink, fascia with dehiscence with fibrinous material Results Laboratory Results: 09/20/19 06:20 09/19/19 09/19/19 09/20/19 07:20 07:20 06:20 WBC 7.2 RBC 3.40 L Hgb 9.7 L Hct 28.0 L MCV 82 MCH 28.4 MCHC 34.5 RDW 14.5 H Plt Count 253 Seg Neutrophils % Not Reportable Sodium 137.8 139.1 Potassium 4.0 4.6 Chloride 102 106 Carbon Dioxide 26 24 Anion Gap 10 9 BUN 20 14 Creatinine 1.27 H 0.97 Est GFR ( Amer) 49 L > 60 Glucose 89 87 Calcium 8.9 9.1 09/17/19 15:30 Suprapubic Wound Gram Stain - Final 09/06/19 17:25 Troponin I 0.024 Impressions: Chest X-Ray 09/06/19 20:30 IMPRESSION: No acute cardiopulmonary process copyright 2011 [employer]- All Rights Reserved Head CT 09/06/19 20:30 IMPRESSION: 1. No hemorrhage or mass lesion. 2. Age-related volume loss with nonspecific white matter changes suggestive of small vessel ischemic disease. Abdomen/Pelvis CT 09/06/19 20:31 IMPRESSION: Small bowel obstruction, as above with probable transition point associated with a hernia of the anterior left hemipelvis abdominal or pelvic wall. Small amount of free fluid. No free air. Relative decompression of colon. Aneurysmal dilatation of the abdominal aorta measuring 5.7 x 5.7 cm. Recommend follow-up as per below. Post surgical changes with endovascular stent graft in place. No free air. Severe left renal atrophy. For management of fusiform aneurysmal abdominal aortas: <2.6 cm aorta, no follow-up is recommended. 2.6-2.9 cm aorta, recommend follow-up every 5 years for aortas meeting the criteria for AAA (>1.5 x proximal normal segment; no f/u if < 1.5 x proximal normal segment; no f/u for aortas < 2.6 cm). 3.0-3.4 cm AAA, recommend follow-up every 3 years. 3.5-3.9 cm AAA, recommend follow-up every 2 years. 4.0-4.4 cm AAA, recommend follow-up every 12 months and recommend vascular consultation. 4.5-5.4 cm AAA, recommend follow-up every 6 months and recommend vascular consultation. >5.5 cm AAA, recommend referral to vascular specialist. For management of saccular abdominal aortic aneurysms of any size, recommend vascular consultation. Note: for AAA enlargement of >0.5 cm in 6 months or >1 cm in 1 year, recommend vascular consultation. References: J Am Donald Radiol 2013; 10(10):789-794; J Vasc Surg. 2018; 67:2-77 TECHNICAL DOCUMENTATION: Quality ID # 436: Final reports with documentation of one or more dose reduction techniques (e.g., Automated exposure control, adjustment of the mA and/or kV according to patient size, use of iterative reconstruction technique) copyright 2011 [employer]- All Rights Reserved Small Bowel X-Ray 09/14/19 00:00 IMPRESSION: No evidence of small-bowel obstruction. By 30 minutes, half strength Gastrografin oral contrast was seen in the ascending and transverse colon. KUB X-Ray 09/14/19 07:00 IMPRESSION: Nonobstructive bowel gas pattern. Assessment & Plan - Diagnosis (1) Surgical wound infection Is this a current diagnosis for this admission?: Yes (2) Abdominal pain Qualifiers: Abdominal location: epigastric Qualified Code(s): R10.13 - Epigastric pain Is this a current diagnosis for this admission?: Yes (3) Bowel obstruction Qualifiers: Intestinal obstruction type: unspecified Intestinal obstruction extent: unspecified extent Qualified Code(s): K56.609 - Unspecified intestinal obstruc tion, unspecified as to partial versus complete obstruction Is this a current diagnosis for this admission?: Yes (4) Small bowel obstruction due to adhesions Is this a current diagnosis for this admission?: Yes - Time Time Spent with patient: 15-24 minutes - Plan Summary Plan Summary: Assessment: Day #10 following exploratory laparotomy lysis of adhesions for small bowel obstruction Patient hemodynamically stable afebrile Tolerating p.o. well Bowel function returned Improved creatinine for administration IV fluids (0.9 today from 1.3 yesterday) S/p drainage of infected midline abdominal wound postop day #3 Wound granulating with dehiscence of the fascia, exposed bowel covered with fibrinous material Wound culture significant for E. coli and Pseudomonas Patient currently on Flagyl and Levaquin Plan: Continue Flagyl Discontinue IV fluids Check creatinine tomorrow Plan discharge to home tomorrow if patient continues to improve Home health care nurse for twice daily normal saline wet-to-dry dressing changes of the abdominal wound Patient be discharged home on oral Levaquin
[2019-09-20 08:40] LABS: ABSOLUTE LYMPHOCYTES# (MANUAL) 1.2 10^3/uL (0.5-4.7); ABSOLUTE MONOCYTES # (MANUAL) 0.3 10^3/uL (0.1-1.4); BAND NEUTROPHILS % (MANUAL) 1 % (3-5); BASOPHILS % (MANUAL) 0 % (0-2); EOSINOPHILS % (MANUAL) 5 % (0-6); LYMPHOCYTES % (MANUAL) 17 % (13-45); METAMYELOCYTES % (MANUAL) 1 % (0-1); MONOCYTES % (MANUAL) 5 % (3-13); SEGMENTED NEUTROPHILS % (MAN) 69 % (42-78); TOTAL CELLS COUNTED 100
[2019-09-20 08:41] LABS: ANISOCYTOSIS SLIGHT; PLATELET CLUMPS PRESENT; PLATELET COMMENT ADEQUATE; PLATELET COUNT 327 10^3/uL (150-450)
[2019-09-20] MEDS: LABETALOL HCL 200 MG TABLET PO SCH ×2 (09:12→22:22)
[2019-09-20] MEDS: CIPROFLOXACIN 400 MG/D5W RTU 400 MG/200 ML RTUPB IV SCH ×2 (09:13→22:23)
--- NOTE | 2019-09-20 17:40 | PDOC PROGRESS REPORT ---
Subjective Progress Note for:: 09/20/19 Subjective:: No adverse events overnight. Blood pressure and heart rate is been stable. Reason For Visit: SMALL BOWEL OBSTRUCTION Physical Exam Vital Signs: Temp Pulse Resp BP Pulse Ox 98.4 F 58 L 18 156/58 H 99 09/20/19 12:20 09/20/19 12:20 09/20/19 12:20 09/20/19 12:20 09/20/19 12:20 Intake & Output 09/19/19 09/20/19 09/21/19 06:59 06:59 06:59 Intake Total 2371 1660 Output Total 900 1300 Balance 1471 360 Weight 52 kg 52 kg 52 kg General appearance: PRESENT: no acute distress, cooperative, disheveled, thin Respiratory exam: PRESENT: clear to auscultation josefina, symmetrical, unlabored. ABSENT: accessory muscle use, crackles, prolonged expiratory phas, rales, retraction, rhonchi, tachypnea, wheezes Cardiovascular exam: PRESENT: RRR, +S1, +S2 Pulses: PRESENT: normal carotid pulses Vascular exam: PRESENT: normal capillary refill GI/Abdominal exam: PRESENT: normal bowel sounds, soft, other - Left lower quadrant colostomy with stool in the bag, midline incision is covered with a sterile dressing with no surrounding erythema. ABSENT: distended, guarding, rebound, tenderness Extremities exam: ABSENT: clubbing, pedal edema Musculoskeletal exam: PRESENT: normal inspection. ABSENT: deformity Neurological exam: PRESENT: alert, awake, oriented to person, oriented to place, oriented to situation Results Laboratory Results: 09/20/19 06:20 09/20/19 06:20 09/20/19 09/20/19 06:20 06:20 WBC 6.1 RBC 3.37 L Hgb 9.5 L Hct 27.9 L MCV 83 MCH 28.1 MCHC 34.0 RDW 14.4 H Plt Count 327 Seg Neutrophils % Not Reportable Sodium 139.1 Potassium 4.6 Chloride 106 Carbon Dioxide 24 Anion Gap 9 BUN 14 Creatinine 0.97 Est GFR ( Amer) > 60 Glucose 87 Calcium 9.1 09/17/19 15:30 Suprapubic Wound Gram Stain - Final 09/06/19 17:25 Troponin I 0.024 Impressions: Chest X-Ray 09/06/19 20:30 IMPRESSION: No acute cardiopulmonary process copyright 2011 [employer]- All Rights Reserved Head CT 09/06/19 20:30 IMPRESSION: 1. No hemorrhage or mass lesion. 2. Age-related volume loss with nonspecific white matter changes suggestive of small vessel ischemic disease. Abdomen/Pelvis CT 09/06/19 20:31 IMPRESSION: Small bowel obstruction, as above with probable transition point associated with a hernia of the anterior left hemipelvis abdominal or pelvic wall. Small amount of free fluid. No free air. Relative decompression of colon. Aneurysmal dilatation of the abdominal aorta measuring 5.7 x 5.7 cm. Recommend follow-up as per below. Post surgical changes with endovascular stent graft in place. No free air. Severe left renal atrophy. For management of fusiform aneurysmal abdominal aortas: <2.6 cm aorta, no follow-up is recommended. 2.6-2.9 cm aorta, recommend follow-up every 5 years for aortas meeting the criteria for AAA (>1.5 x proximal normal segment; no f/u if < 1.5 x proximal normal segment; no f/u for aortas < 2.6 cm). 3.0-3.4 cm AAA, recommend follow-up every 3 years. 3.5-3.9 cm AAA, recommend follow-up every 2 years. 4.0-4.4 cm AAA, recommend follow-up every 12 months and recommend vascular consultation. 4.5-5.4 cm AAA, recommend follow-up every 6 months and recommend vascular consultation. >5.5 cm AAA, recommend referral to vascular specialist. For management of saccular abdominal aortic aneurysms of any size, recommend vascular consultation. Note: for AAA enlargement of >0.5 cm in 6 months or >1 cm in 1 year, recommend vascular consultation. References: J Am Donald Radiol 2013; 10(10):789-794; J Vasc Surg. 2018; 67:2-77 TECHNICAL DOCUMENTATION: Quality ID # [id number]: Final reports with documentation of one or more dose reduction techniques (e.g., Automated exposure control, adjustment of the mA and/or kV according to patient size, use of iterative reconstruction technique) copyright 2010 [employer]- All Rights Reserved Small Bowel X-Ray 09/14/19 00:00 IMPRESSION: No evidence of small-bowel obstruction. By 30 minutes, half strength Gastrografin oral contrast was seen in the ascending and transverse colon. KUB X-Ray 09/14/19 07:00 IMPRESSION: Nonobstructive bowel gas pattern. Assessment and Plan - Diagnosis (1) Hypertension Qualifiers: Hypertension type: essential hypertension Qualified Code(s): I10 - Essential (primary) hypertension Is this a current diagnosis for this admission?: Yes Plan: Well-controlled with labetalol alone would continue that for now and would not resume her other home medications at this time (2) Tachycardia Is this a current diagnosis for this admission?: Yes Plan: Resolved (3) Small bowel obstruction due to adhesions Is this a current diagnosis for this admission?: Yes Plan: Per surgery (4) Surgical wound infection Is this a current diagnosis for this admission?: Yes - Time Time Spent with patient: 15-24 minutes
[2019-09-21 06:28] LABS: HEMATOCRIT 27.2 % (36.0-47.0); HEMOGLOBIN 9.3 g/dL (12.0-15.5); MEAN CORPUSCULAR HEMOGLOBIN 28.2 pg (27.0-33.4); MEAN CORPUSCULAR HGB CONC 34.2 g/dL (32.0-36.0); MEAN CORPUSCULAR VOLUME 83 fl (80-97); PLATELET COUNT 374 10^3/uL (150-450); RED BLOOD COUNT 3.29 10^6/uL (3.72-5.28); RED CELL DISTRIBUTION WIDTH 14.5 % (11.5-14.0); WHITE BLOOD COUNT 6.1 10^3/uL (4.0-10.5)
[2019-09-21 06:29] LABS: ANION GAP 10 (5-19); BLOOD UREA NITROGEN 12 mg/dL (7-20); CALCIUM 9.6 mg/dL (8.4-10.2); CARBON DIOXIDE 22 mmol/L (22-30); CHLORIDE 105 mmol/L (98-107); GLUCOSE 84 mg/dL (75-110); POTASSIUM 4.6 mmol/L (3.6-5.0)
[2019-09-21 07:24] LABS: ABSOLUTE LYMPHOCYTES# (MANUAL) 1.2 10^3/uL (0.5-4.7); ABSOLUTE MONOCYTES # (MANUAL) 0.4 10^3/uL (0.1-1.4); ANISOCYTOSIS SLIGHT; BASOPHILS % (MANUAL) 0 % (0-2); EOSINOPHILS % (MANUAL) 1 % (0-6); LYMPHOCYTES % (MANUAL) 19 % (13-45); MONOCYTES % (MANUAL) 6 % (3-13); PLATELET COMMENT ADEQUATE; SEGMENTED NEUTROPHILS % (MAN) 74 % (42-78); TOTAL CELLS COUNTED 100
--- NOTE | 2019-09-21 08:17 | PDOC DISCHARGE SUMMARY ---
General - Admit/Disc Date/PCP Admission Date/Primary Care Provider: 09/06/19 23:01 ANNE COVINGTON PA-C Discharge Date: 09/21/19 - Discharge Diagnosis Final Diagnosis: Small bowel mechanical obstruction - Assessment Summary: The patient is an 79-year-old female with a history of hypertension admitted on 2019 with abdominal pain distention and obstipation she went to surgery on September 10 for anatomy and lysis of adhesions. Procedure was uneventful. Postop course was uneventful: However, was complicated by recurrence of midline laparotomy wound infection which was growing enterococcus and Pseudomonas which was treated with IV antibiotics and wound care. Discharge September 21, 2019 the patient no complaints, she was tolerating p.o. well, her vital signs are stable, blood work within normal limits, physical exam lungs are clear, heart regular rhythm and rate, abdomen soft nondistended nontender, her colostomy bag was filled with stools and gas, the midline incision was granulating with no evidence of active infection Discharge orders Surgeon September 21, 2019 Follow-up with the primary care physician in 2 weeks Follow-up with Dr. Brar in 2 weeks Resume home medications Tylenol only for pain Levaquin 500 milligram p.o. daily for a week Flagyl 500 mg p.o. 3 times a day for 1 week Shower only until wound is completely closed Home health care nurse to change the dressings daily with normal saline wet-to-dry technique The family can change the dressings with the same technique at night Activity as tolerated, no straining or lifting more than 10 pounds for about 2 months Patient go up and down the stairs and in and out of the car Regular diet - Additional Information Resuscitation Status: Full Code Discharge Diet: Regular Discharge Activity: Activity As Tolerated, No Lifting Over 10 Pounds, No Lifting/Push/Pulling, No tub bath - Shower allowed, no tub baths until the wound is completely closed Referrals: [facility] [Provider Group] Prescriptions: Metronidazole [Flagyl 500 mg Tablet] 500 mg PO TID #21 tablet Levofloxacin [Levaquin 500 mg Tablet] 500 mg PO DAILY #7 tablet Home Medications: Solifenacin Succinate [Vesicare] 10 mg PO DAILY 06/20/13 Meclizine HCl [Antivert 25 mg Tablet] 25 mg PO BID 04/07/14 Atorvastatin Calcium [Lipitor 40 mg Tablet] 40 mg PO DAILY 06/22/14 Amlodipine Besylate [Norvasc 10 mg Tablet] 10 mg PO DAILY 09/07/19 Aspirin [Ecotrin 81 mg EC Tablet] 81 mg PO DAILY 09/07/19 Clonidine [Catapres-Tts 1 (0.1 mg/24 Hr) Transderm Patch] 1 patch TD .WEEKLY 09/07/19 Escitalopram Oxalate [Lexapro 10 mg Tablet] 10 mg PO DAILY 09/07/19 Gabapentin [Neurontin 300 mg Capsule] 300 mg PO Q12 09/07/19 Hydralazine HCl [Apresoline 25 mg Tablet] 25 mg PO BID 09/07/19 Labetalol HCl 100 mg PO BID 09/07/19 Mirabegron [Myrbetriq] 50 mg PO DAILY 09/07/19 Thiamine HCl [B-1] 100 mg PO DAILY 09/07/19 Levofloxacin [Levaquin 500 mg Tablet] 500 mg PO DAILY #7 tablet 09/21/19 Metronidazole [Flagyl 500 mg Tablet] 500 mg PO TID #21 tablet 09/21/19 History of Present Illiness History of Present Illness: STEPHANIE MILLER is a 79 year old female Physical Exam Vital Signs: Temp Pulse Resp BP Pulse Ox 97.9 F 68 17 150/94 H 96 09/21/19 05:01 09/21/19 05:01 09/21/19 05:01 09/21/19 05:01 09/21/19 05:01 Intake & Output 09/20/19 09/21/19 09/22/19 06:59 06:59 06:59 Intake Total 1660 650 Output Total 1300 1100 Balance 360 -450 Weight 52 kg 52.2 kg Results Laboratory Results: WBC 6.1 10^3/uL (4.0-10.5) 09/21/19 05:15 RBC 3.29 10^6/uL (3.72-5.28) L 09/21/19 05:15 Hgb 9.3 g/dL (12.0-15.5) L 09/21/19 05:15 Hct 27.2 % (36.0-47.0) L 09/21/19 05:15 MCV 83 fl (80-97) 09/21/19 05:15 MCH 28.2 pg (27.0-33.4) 09/21/19 05:15 MCHC 34.2 g/dL (32.0-36.0) 09/21/19 05:15 RDW 14.5 % (11.5-14.0) H 09/21/19 05:15 Plt Count 374 10^3/uL (150-450) 09/21/19 05:15 Lymph % (Auto) Not Reportable 09/21/19 05:15 [place] % (Auto) Not Reportable 09/21/19 05:15 Eos % (Auto) Not Reportable 09/21/19 05:15 Baso % (Auto) Not Reportable 09/21/19 05:15 Absolute Neuts (auto) Not Reportable 09/21/19 05:15 Absolute Lymphs (auto) Not Reportable 09/21/19 05:15 Absolute Monos (auto) Not Reportable 09/21/19 05:15 Absolute Eos (auto) Not Reportable 09/21/19 05:15 Absolute Basos (auto) Not Reportable 09/21/19 05:15 Total Counted 100 09/21/19 05:15 Seg Neutrophils % Not Reportable 09/21/19 05:15 Seg Neuts % (Manual) 74 % (42-78) 09/21/19 05:15 Band Neutrophils % 1 % (3-5) L 09/20/19 06:20 Lymphocytes % (Manual) 19 % (13-45) 09/21/19 05:15 Atypical Lymphs % 2 % (0) 09/20/19 06:20 Monocytes % (Manual) 6 % (3-13) 09/21/19 05:15 Eosinophils % (Manual) 1 % (0-6) 09/21/19 05:15 Basophils % (Manual) 0 % (0-2) 09/21/19 05:15 Metamyelocytes % 1 % (0-1) 09/20/19 06:20 Myelocytes % 1 % (0) H 09/14/19 04:49 Abs Neuts (Manual) 4.5 10^3/uL (1.7-8.2) 09/21/19 05:15 Abs Lymphs (Manual) 1.2 10^3/uL (0.5-4.7) 09/21/19 05:15 Abs Monocytes (Manual) 0.4 10^3/uL (0.1-1.4) 09/21/19 05:15 Absolute Eos (Manual) 0.1 10^3/uL (0.0-0.6) 09/21/19 05:15 Abs Basophils (Manual) 0.0 10^3/uL (0.0-0.2) 09/21/19 05:15 Toxic Granulation 1+ 09/19/19 07:20 Toxic Vacuolation PRESENT 09/18/19 04:21 Clumped Platelets PRESENT 09/20/19 06:20 Large Platelets PRESENT 09/15/19 10:29 Platelet Comment ADEQUATE 09/21/19 05:15 Polychromasia SLIGHT 09/14/19 04:49 Poikilocytosis 1+ 09/19/19 07:20 Anisocytosis SLIGHT 09/21/19 05:15 Ovalocytes 1+ 09/19/19 07:20 Helmet Cells SLIGHT 09/19/19 07:20 Suraj Cells SLIGHT 09/18/19 04:21 Sodium 137.2 mmol/L (137-145) 09/21/19 05:15 Potassium 4.6 mmol/L (3.6-5.0) 09/21/19 05:15 Chloride 105 mmol/L (98-107) 09/21/19 05:15 Carbon Dioxide 22 mmol/L (22-30) 09/21/19 05:15 Anion Gap 10 (5-19) 09/21/19 05:15 BUN 12 mg/dL (7-20) 09/21/19 05:15 Creatinine 0.91 mg/dL (0.52-1.25) 09/21/19 05:15 Est GFR ( Amer) > 60 (>60) 09/21/19 05:15 Est GFR (MDRD) Non-Af 59 (>60) L 09/21/19 05:15 Glucose 84 mg/dL (75-110) 09/21/19 05:15 POC Glucose 109 mg/dL (70-110) 09/17/19 11:00 Calcium 9.6 mg/dL (8.4-10.2) 09/21/19 05:15 Magnesium 1.6 mg/dL (1.6-2.3) 09/18/19 04:21 Total Bilirubin 0.8 mg/dL (0.2-1.3) 09/06/19 17:25 Direct Bilirubin 0.4 mg/dL (0.0-0.4) 09/06/19 17:25 Neonat Total Bilirubin Not Reportable 09/06/19 17:25 Neonat Direct Bilirubin Not Reportable 09/06/19 17:25 Neonat Indirect Bili Not Reportable 09/06/19 17:25 AST 27 U/L (14-36) 09/06/19 17:25 ALT 15 U/L (<35) 09/06/19 17:25 Alkaline Phosphatase 88 U/L (38-126) 09/06/19 17:25 Troponin I 0.024 ng/mL 09/06/19 17:25 Total Protein 8.4 g/dL (6.3-8.2) H 09/06/19 17:25 Albumin 4.8 g/dL (3.5-5.0) 09/06/19 17:25 Lipase 59.8 U/L (23-300) 09/06/19 17:25 Urine Color YELLOW 09/06/19 22:24 Urine Appearance CLEAR 09/06/19 22:24 Urine pH 6.0 (5.0-9.0) 09/06/19 22:24 Ur Specific [place] 1.027 09/06/19 22:24 Urine Protein >=500 mg/dL (NEGATIVE) H 09/06/19 22:24 Urine Glucose (UA) NEGATIVE mg/dL (NEGATIVE) 09/06/19 22:24 Urine Ketones NEGATIVE mg/dL (NEGATIVE) 09/06/19 22:24 Urine Blood MODERATE (NEGATIVE) H 09/06/19 22:24 Urine Nitrite NEGATIVE (NEGATIVE) 09/06/19 22:24 Urine Bilirubin NEGATIVE (NEGATIVE) 09/06/19 22:24 Urine Urobilinogen NEGATIVE mg/dL (<2.0) 09/06/19 22:24 Ur Leukocyte Esterase NEGATIVE (NEGATIVE) 09/06/19 22:24 Urine WBC (Auto) 4 /HPF 09/06/19 22:24 Urine RBC (Auto) 51 /HPF 09/06/19 22:24 Squamous Epi Cells Auto 1 /HPF 09/06/19 22:24 Urine Mucus (Auto) RARE /LPF 09/06/19 22:24 Urine Ascorbic Acid NEGATIVE (NEGATIVE) 09/06/19 22:24 Influenza A (Rapid) NEGATIVE (NEGATIVE) 01/23/20 22:24 Influenza B (Rapid) NEGATIVE (NEGATIVE) 09/06/19 22:24 Slides for Path Review PATHOLOGIST REVIEWED 09/14/19 04:49 Blood Type A POSITIVE 09/10/19 11:50 Antibody Screen NEGATIVE 09/10/19 11:50 09/06/19 17:25 Troponin I 0.024 Impressions: Chest X-Ray 09/06/19 20:30 IMPRESSION: No acute cardiopulmonary process copyright 2010 [employer]- All Rights Reserved Head CT 09/06/19 20:30 IMPRESSION: 1. No hemorrhage or mass lesion. 2. Age-related volume loss with nonspecific white matter changes suggestive of small vessel ischemic disease. Abdomen/Pelvis CT 09/06/19 20:31 IMPRESSION: Small bowel obstruction, as above with probable transition point associated with a hernia of the anterior left hemipelvis abdominal or pelvic wall. Small amount of free fluid. No free air. Relative decompression of colon. Aneurysmal dilatation of the abdominal aorta measuring 5.7 x 5.7 cm. Recommend follow-up as per below. Post surgical changes with endovascular stent graft in place. No free air. Severe left renal atrophy. For management of fusiform aneurysmal abdominal aortas: <2.6 cm aorta, no follow-up is recommended. 2.6-2.9 cm aorta, recommend follow-up every 5 years for aortas meeting the criteria for AAA (>1.5 x proximal normal segment; no f/u if < 1.5 x proximal normal segment; no f/u for aortas < 2.6 cm). 3.0-3.4 cm AAA, recommend follow-up every 3 years. 3.5-3.9 cm AAA, recommend follow-up every 2 years. 4.0-4.4 cm AAA, recommend follow-up every 12 months and recommend vascular consultation. 4.5-5.4 cm AAA, recommend follow-up every 6 months and recommend vascular consultation. >5.5 cm AAA, recommend referral to vascular specialist. For management of saccular abdominal aortic aneurysms of any size, recommend vascular consultation. Note: for AAA enlargement of >0.5 cm in 6 months or >1 cm in 1 year, recommend vascular consultation. References: J Am Donald Radiol 2013; 10(10):789-794; J Vasc Surg. 2018; 67:2-77 TECHNICAL DOCUMENTATION: Quality ID # 436: Final reports with documentation of one or more dose reduction techniques (e.g., Automated exposure control, adjustment of the mA and/or kV according to patient size, use of iterative reconstruction technique) copyright 2011 [employer]- All Rights Reserved KUB X-Ray 09/06/19 22:58 IMPRESSION: 1. Esophagogastric tube tip is likely in the gastric lumen. 2. Small bowel obstruction. KUB X-Ray 09/09/19 06:00 IMPRESSION: Nasogastric tube decompresses the stomach. Persistent marked dilated small bowel loops in the mid abdomen KUB X-Ray 09/12/19 09:57 IMPRESSION: NO RADIOGRAPHIC EVIDENCE FOR ACUTE ABDOMINAL DISEASE. Small Bowel X-Ray 09/14/19 00:00 IMPRESSION: No evidence of small-bowel obstruction. By 30 minutes, half strength Gastrografin oral contrast was seen in the ascending and transverse colon. KUB X-Ray 09/14/19 07:00 IMPRESSION: Nonobstructive bowel gas pattern.
[2019-09-21 09:42] VITALS: BP 138/59
== END 2019-09-21 10:16 | disposition home health service (06) | DRG 336 ==
LOC: ER 16:52 → EH 23:01 → 3S 09-07 02:13 → 5 09-13 17:43
PROVIDERS: ADMIT Surgery; ATTEND Surgery
PROC: 0DN80ZZ Release Small Intestine, Open Approach (ICD-10-PCS; 2019-09-10)
PROC: 0DNU0ZZ Release Omentum, Open Approach (ICD-10-PCS; 2019-09-10)
PROC: 0DNB0ZZ Release Ileum, Open Approach (ICD-10-PCS; principal; 2019-09-10 12:00)
PROC: 0H97XZX Drainage of Abdomen Skin, External Approach, Diagnostic (ICD-10-PCS; 2019-09-17)
DX: K56.50 Intestinal adhesions [bands], unspecified as to partial versus complete obstruction (principal); T81.41XA Infection following a procedure, superficial incisional surgical site, initial encounter; E87.6 Hypokalemia; I10 Essential (primary) hypertension; E78.5 Hyperlipidemia, unspecified; I71.4 Abdominal aortic aneurysm, without rupture; K56.7 Ileus, unspecified; B96.20 Unspecified Escherichia coli [E. coli] as the cause of diseases classified elsewhere; B96.5 Pseudomonas (aeruginosa) (mallei) (pseudomallei) as the cause of diseases classified elsewhere; B95.2 Enterococcus as the cause of diseases classified elsewhere; Y83.8 Other surgical procedures as the cause of abnormal reaction of the patient, or of later complication, without mention of misadventure at the time of the procedure; Y92.234 Operating room of hospital as the place of occurrence of the external cause; Z93.3 Colostomy status; Z79.01 Long term (current) use of anticoagulants
CPT/HCPCS: 00790; 36415; 51701; 70450; 71045; 74018; 74177; 74250; 80048; 80053; 81001; 82962; 83690; 83735; 84484; 85025; 86850; 86900; 86901; 87070; 87075; 87077; 87086; 87186; 87205; 87804; 93306; 96361; 96374; 99285; C1758; J0131; J0330; J0744; J1100; J1885; J2250; J2270; J2370; J2405; J2704; J2710; J3010; J3480; J3490; J7030; J7121